=== PATIENT | male | born 1965 | race American Indian/Alaskan Native ===

== ENCOUNTER 2018-05-11 11:42 | Day surgery (SDC) | payer MEDICARE, OTHER ==
[~2018-05-11 11:42] MED LIST: Lactated Ringers 1,000 ML IV SCH; Lidocaine 2% 5 ML SDV ONE; Midazolam 1 MG/ML 2 ML SDV ONE; Propofol 200 MG/20 ML SDV ONE
--- NOTE | 2018-05-11 12:32 | PCM.PREANE ---
Preanesthetic Assessment - Anesthesia/Transfusion/Family Hx Anesthesia History: Prior Anesthesia Without Reaction Family History of Anesthesia Reaction: No Transfusion History: No Prior Transfusion(s) Intubation History: Unknown - Review of Systems General: No Symptoms Pulmonary: No Symptoms Cardiovascular: No Symptoms Neurological: No Symptoms Other: Reports: None - Physical Assessment NPO Status Date: 05/10/18 Height: 1.8 m Weight: 103.419 kg ASA Class: 2 Airway Class: Mallampati = 2 Dentition: Reports: Dentures (upper) ROM/Head Extension: Full Lungs: Clear to Auscultation, Normal Respiratory Effort Cardiovascular: Regular Rate, Regular Rhythm - Allergies Allergies/Adverse Reactions: Allergies Allergy/AdvReac Type Severity Reaction Status Date / Time No Known Allergies Allergy Verified 05/06/18 07:58 - Blood Blood Available: No - Anesthesia Plan Pre-Op Medication Ordered: None - Acknowledgements Anesthesia Type Planned: MAC Pt an Appropriate Candidate for the Planned Anesthesia: Yes Alternatives and Risks of Anesthesia Discussed w Pt/Guardian: Yes Pt/Guardian Understands and Agrees with Anesthesia Plan: Yes Additional Comments: PMH: HTN, smoker PLAN: MC/TIVA PreAnesthesia Questionnaire HEENT History: Reports: Other (See Below) Other HEENT History: upper denture, wears glasses Cardiovascular History: Reports: CAD, Hypertension, [place] Gastrointestinal History: Reports: GERD Other Gastrointestinal History: difficulty swallowing Genitourinary History: Reports: None Musculoskeletal History: Reports: Arthritis, Back Pain, Chronic, Fracture Neurological History: Reports: None Psychiatric History: Reports: None Endocrine/Metabolic History: Reports: Obesity/BMI 30+ Hematologic History: Reports: None Immunologic History: Reports: None Oncologic (Cancer) History: Reports: None - Infectious Disease History Infectious Disease History: Reports: Chicken Pox, Mumps - Past Surgical History Head Surgeries/Procedures: Reports: None GI Surgical History: Reports: Cholecystectomy Neurological Surgical History: Reports: Lumbar Spine Other Neurological Surgeries/Procedures: back surgery x3 Musculoskeletal Surgical History: Reports: ORIF, Shoulder Surgery, Other (See Below) Other Musculoskeletal Surgeries/Procedures:: hardware to both lower extremities , hx rt shoulder surgery - SUBSTANCE USE Smoking Status *Q: Former Smoker Tobacco Use Within Last Twelve Months: No Recreational Drug Use History: No - HOME MEDS Home Medications: Home Meds Lisinopril/Hydrochlorothiazide [Lisinopril-Hctz 20-12.5 mg Tab] 1 tab PO DAILY 10/19/18 [History] Metoprolol Succinate 25 mg PO DAILY 02/11/18 [History] traMADol HCl [Tramadol HCl] 1 - 2 tab PO Q8H PRN 03/08/18 [History] Acetaminophen [Tylenol Extra Strength] 1 - 2 tab PO ASDIRECTED PRN 05/06/18 [ History] Pantoprazole Sodium 40 mg PO BID 05/06/18 [History] - CURRENT (IN HOUSE) MEDS Current Meds: Current Medications Lactated Ringer's (Ringers, Lactated) 1,000 mls @ 125 mls/hr IV ASDIRECTED NAVEEN Discontinued Medications Lidocaine (Xylocaine-Mpf 2%) Confirm Administered Dose 5 ml .ROUTE .STK-MED ONE Stop: 05/11/18 10:29 Midazolam HCl (Versed 1 Mg/Ml) Confirm Administered Dose 2 mg .ROUTE .STK-MED ONE Stop: 05/11/18 08:55 Propofol (Diprivan 20 Ml) Confirm Administered Dose 200 mg .ROUTE .STK-MED ONE Stop: 05/11/18 08:55
[2018-05-11] MEDS ORDERED: Propofol 200 MG/20 ML SDV ONE (14:01)
[2018-05-11] MEDS ORDERED: Lactated Ringers 1,000 ML IV SCH (14:15)
--- NOTE | 2018-05-11 14:16 | PCM.OPNOTE ---
- General Post-Op/Procedure Note Date of Surgery/Procedure: 05/11/18 Operative Procedure(s): Esophagogastroduodenoscopy with gastric and esophageal biopsies Pre Op Diagnosis: Progressive solid food dysphagia. 40 pound weight loss. Post-Op Diagnosis: Moderate acute and chronic gastritis. Distal esophagitis. No obvious stricture. Anesthesia Technique: MAC (ASA II) Primary Surgeon: Saad Rosario Condition: Good Free Text/Narrative:: DICTATION [id number] CPT CODE [id number]
--- NOTE | 2018-05-11 14:46 | PCM.POSTAN ---
POST ANESTHESIA ASSESSMENT - MENTAL STATUS Mental Status: Alert, Oriented (alert and very talkative) - VITAL SIGNS Pulse Rate: 75 SaO2: 95 Resp Rate: 20 Blood Pressure: 108/70 - RESPIRATORY Respiratory Status: Respiratory Rate WNL, Airway Patent, O2 Saturation Stable - CARDIOVASCULAR CV Status: Pulse Rate WNL, Blood Pressure Stable - GASTROINTESTINAL GI Status: No Symptoms - PAIN Pain Score: 0 (no pain, no nausea.) - POST OP HYDRATION Hydration Status: Adequate & Stable - OBSERVATIONS Free Text/Narrative:: awake, alert, vitals stable. Very talkative in pacu. Good post op phase I recovery.
[2018-05-11 15:27] VITALS: BP 108/70
--- NOTE | 2018-05-11 15:27 | PCM48HPAN ---
Post Anesthesia Note - EVALUATION WITHIN 48HRS OF ANESTHETIC Vital Signs in Normal Range: Yes Patient Participated in Evaluation: Yes Respiratory Function Stable: Yes Airway Patent: Yes Cardiovascular Function Stable: Yes Hydration Status Stable: Yes Pain Control Satisfactory: Yes (no pain) Nausea and Vomiting Control Satisfactory: Yes (no pain) Mental Status Recovered: Yes (alert and oriented ) Pulse Rate: 75 Resp Rate: 16 Blood Pressure: 108/70
--- NOTE | 2018-05-11 15:38 | OR ---
SURGEON: Saad Rosario M.D. DATE OF PROCEDURE: 05/11/2018 OPERATIONS PERFORMED: Esophagogastroduodenoscopy with gastric and esophageal biopsies. ANESTHESIA: MAC. ASA CLASSIFICATION: II. PREOPERATIVE DIAGNOSIS: Dysphagia with weight loss and family history of esophageal carcinoma. POSTOPERATIVE DIAGNOSES: 1. Moderate acute and chronic gastritis. 2. Hiatal hernia with esophagitis. DESCRIPTION OF PROCEDURE: The patient was taken to the endoscopy room and positioned on the endoscopy table in the supine position. Time-out was called for appropriate identification of the patient and procedure. Monitored anesthesia care was provided. The bite block was placed between the patient's teeth. The gastroscope was inserted through the bite block and advanced without difficulty into the esophagus. This was advanced down through the distal esophagus. I did not meet any resistance to advancement of the scope. Esophagus does demonstrate a bit of a tortuosity. Nevertheless, the gastroscope was easily inserted into the stomach and duodenum. Duodenum shows no acute inflammatory changes or ulcerations. The stomach does show rather significant gastritis. Antral biopsies were obtained to look for the presence of Helicobacter pylori. The gastroscope was then retroflexed to visualize the proximal stomach. No acute lesions were noted proximally. Specifically, no tumors were seen. The gastroscope was then slowly withdrawn. The GE junction does demonstrate some [id number] inflammatory changes and separate biopsies of this area were obtained. I do agree with Radiology report regarding the bird's beak deformity. However, I cannot see any obstruction to the advancement of the scope and was able to traverse the lower third of the esophagus multiple times without difficulty. No significant bleeding was noted. The mid and proximal esophagus demonstrated good contractility. Vocal cords were briefly visualized as the scope was withdrawn and noted to move symmetrically. The gastroscope was then removed with the patient having tolerated the procedure well. He was taken to recovery room in stable condition. BRITNI / KUMAR /[id number]
== END 2018-05-11 15:30 | disposition home or self-care (01) ==
LOC: MW.SDS 11:42
PROVIDERS: ATTEND Surgery
DX: K20.9 Esophagitis, unspecified (principal); K29.50 Unspecified chronic gastritis without bleeding; K29.00 Acute gastritis without bleeding; K44.9 Diaphragmatic hernia without obstruction or gangrene; R63.4 Abnormal weight loss; I10 Essential (primary) hypertension; E66.9 Obesity, unspecified; Z68.31 Body mass index [BMI] 31.0-31.9, adult; Z87.891 Personal history of nicotine dependence; Z79.899 Other long term (current) drug therapy; Z80.0 Family history of malignant neoplasm of digestive organs
CPT/HCPCS: 43239; 88305; 88312; J2250; J2704; J7120

== ENCOUNTER 2018-07-21 10:19 | Emergency (ER) | payer MEDICARE, OTHER ==
[2018-07-21] MEDS ORDERED: cefTRIAXone 1 GM Vial IM ONE (10:29)
--- NOTE | 2018-07-21 10:43 | EDM.PDOC ---
ED HPI GENERAL MEDICAL PROBLEM - General Chief Complaint: Skin Complaint Stated Complaint: INFECTION ON ABDOMEN Time Seen by Provider: 07/21/18 10:22 Source of Information: Reports: Patient History Limitations: Reports: No Limitations - History of Present Illness INITIAL COMMENTS - FREE TEXT/NARRATIVE: HISTORY AND PHYSICAL: History of present illness: Patient is a 53-year-old male who presents to the emergency room today with concerns of a postoperative infection. He states he was seen in [facility] for an esophageal stricture and had abdominal surgery recently. As a result, he has 5 post surgical stab sites to the mid abdomen (appears to have been closed with dermabond). The incision to the mid abdomen above the umbilicus is dehisced with minimal purulent drainage noted within the wound. Patient states he noticed this yesterday and was seen yesterday at [facility]. He was started on Keflex, its prescribed to be taken 4 times daily. He has had 3 doses this far. He is concerned as the infection has not gone away and is concerned he may need additional treatment. Patient denies any fever, chills, headache, change in vision, syncope or near syncope. Denies any chest pain, shortness of breath or cough. Denies any abdominal pain, nausea, vomiting, diarrhea, constipation or dysuria. Has not noted any blood in urine or stool. Patient has been eating and drinking appropriately. Review of systems: As per history of present illness and below otherwise all systems reviewed and negative. Past medical history: As per history of present illness and as reviewed below otherwise noncontributory. Surgical history: As per history of present illness and as reviewed below otherwise noncontributory. Social history: See social history for further information Family history: As per history of present illness and as reviewed below otherwise noncontributory. Physical exam: General: Well-developed and well-nourished 53-year-old male. Alert and oriented. Nontoxic appearing and in no acute distress. HEENT: Atraumatic, normocephalic, pupils equal and reactive bilaterally, negative for conjunctival pallor or scleral icterus, mucous membranes moist, TMs normal bilaterally, throat clear, neck supple, nontender, trachea midline. No drooling or trismus noted. No meningeal signs. No hot potato voice noted. Lungs: Clear to auscultation, breath sounds equal bilaterally, chest nontender. Heart: S1S2, regular rate and rhythm without overt murmur Abdomen: Soft, nondistended, nontender. Negative for masses or hepatosplenomegaly. Negative for costovertebral tenderness. Pelvis: Stable nontender. Genitourinary: Deferred. Rectal: Deferred. Skin: 5 postoperative stab sites noted to the abdomen all approximately 2 cm in length, 4 well closed with dermabond (no errythema noted or any evidence of infection). The incision site to the mid abdomen above the umbilicus is dehisced and opened approximately 1 cm at the widest part. There is some mild purulent drainage within the wound. The incision site edges are free of erythema and does not appear overly concerning. Able to see internal stitching holding the incision site together. Otherwise skin is intact, warm, dry. No lesions or rashes noted. Extremities: Atraumatic, negative for cords or calf pain. Neurovascular unremarkable. Neuro: Awake, alert, oriented. Cranial nerves II through XII unremarkable. Cerebellum unremarkable. Motor and sensory unremarkable throughout. Exam nonfocal. Notes: The area was cleansed and a wet dressing was applied and covered. We'll have the patient return here in 24 hours for reevaluation. Supportive care measures were reviewed and discussed. Voices understanding and is agreeable to plan of care. Denies any further questions or concerns at this time. Diagnostics: Wound culture Therapeutics: Rocephin Prescription: Bactrim DS Impression: Wound dehiscence Postsurgical incision infection Plan: 1. Please keep the dressing that you have onto the abdomen until you are reevaluated tomorrow. 2. Keep taking the Keflex that you have been prescribed as directed. Bactrim DS has also been added to this regimen. Take both medications until gone. 3. He may continue to use your pain medications that you have at home. 4. Follow-up at [facility] as we discussed. Return to the ED as needed and as discussed. Definitive disposition and diagnosis as appropriate pending reevaluation and review of above. abdomen Pain Score (Numeric/FACES): 6 - Related Data Allergies Allergy/AdvReac Type Severity Reaction Status Date / Time No Known Allergies Allergy Verified 07/21/18 10:27 Home Meds: Home Meds Lisinopril/Hydrochlorothiazide [Lisinopril-Hctz 20-12.5 mg Tab] 1 tab PO DAILY 10/19/18 [History] Metoprolol Succinate 25 mg PO DAILY 02/11/18 [History] traMADol HCl [Tramadol HCl] 1 - 2 tab PO Q8H PRN 03/08/18 [History] Acetaminophen [Tylenol Extra Strength] 1 - 2 tab PO ASDIRECTED PRN 05/06/18 [ History] Pantoprazole Sodium 40 mg PO BID 05/06/18 [History] Cephalexin [Keflex] 500 mg PO Q8HR 07/21/18 [History] Past Medical History HEENT History: Reports: Other (See Below) Other HEENT History: upper denture, wears glasses Cardiovascular History: Reports: CAD, Hypertension, [place] Respiratory History: Reports: None Gastrointestinal History: Reports: GERD Other Gastrointestinal History: difficulty swallowing Genitourinary History: Reports: None Musculoskeletal History: Reports: Arthritis, Back Pain, Chronic, Fracture Neurological History: Reports: None Psychiatric History: Reports: None Endocrine/Metabolic History: Reports: Obesity/BMI 30+ Hematologic History: Reports: None Immunologic History: Reports: None Oncologic (Cancer) History: Reports: None Dermatologic History: Reports: None - Infectious Disease History Infectious Disease History: Reports: Chicken Pox, Mumps - Past Surgical History Head Surgeries/Procedures: Reports: None HEENT Surgical History: Reports: None Cardiovascular Surgical History: Reports: None Respiratory Surgical History: Reports: None GI Surgical History: Reports: Cholecystectomy, Other (See Below) Other GI Surgeries/Procedures: laproscopy hellermenomity Male Surgical History: Reports: None Endocrine Surgical History: Reports: None Neurological Surgical History: Reports: Lumbar Spine Other Neurological Surgeries/Procedures: back surgery x3 Musculoskeletal Surgical History: Reports: ORIF, Shoulder Surgery, Other (See Below) Other Musculoskeletal Surgeries/Procedures:: hardware to both lower extremities , hx rt shoulder surgery Oncologic Surgical History: Reports: None Dermatological Surgical History: Reports: None Social & Family History - Family History Family Medical History: Noncontributory - Tobacco Use Smoking Status *Q: Current Every Day Smoker Years of Tobacco use: 25 Packs/Tins Daily: 0.5 - Caffeine Use Caffeine Use: Reports: None - Recreational Drug Use Recreational Drug Use: No ED ROS GENERAL - Review of Systems Review Of Systems: ROS reveals no pertinent complaints other than HPI. ED EXAM, SKIN/RASH Exam: See Below (See dictation) Course - Vital Signs Last Recorded V/S: Last Vital Signs Temp 97.6 F 07/21/18 10:51 Pulse 68 07/21/18 10:51 Resp 20 07/21/18 10:51 BP 120/72 07/21/18 10:51 Pulse Ox 96 07/21/18 10:51 - Orders/Labs/Meds Orders: Active Orders 24 hr Category Date Time Status Communication Order [RC] STAT Care 07/21/18 10:31 Active CULTURE WOUND [RM] Stat Lab 07/21/18 10:25 Received Meds: Medications Discontinued Medications Generic Name Dose Route Start Last Admin Trade Name Sheryl PRN Reason Stop Dose Admin Ceftriaxone Sodium 1 gm 07/21/18 10:29 07/21/18 10:52 Rocephin IM 07/21/18 10:30 1 gm ONETIME ONE Administration Lidocaine HCl 5 ml 07/21/18 10:39 07/21/18 10:55 Xylocaine-Mpf 1% INJECT 07/21/18 10:40 5 ml ONETIME ONE Administration Departure - Departure Time of Disposition: 10:42 Disposition: Home, Self-Care 01 Clinical Impression: Surgical wound infection Wound dehiscence, surgical Qualifiers: Encounter type: initial encounter Qualified Code(s): T81.31XA - Disruption of external operation (surgical) wound, not elsewhere classified, initial encounter - Discharge Information Instructions: Wound Infection, [id number] Referrals: Bobby Ny [Primary Care Provider] - Forms: ED Department Discharge Additional Instructions: The following information is given to patients seen in the emergency department who are being discharged to home. This information is to outline your options for follow-up care. We provide all patients seen in our emergency department with a follow-up referral. The need for follow-up, as well as the timing and circumstances, are variable depending upon the specifics of your emergency department visit. If you don't have a primary care physician on staff, we will provide you with a referral. We always advise you to contact your personal physician following an emergency department visit to inform them of the circumstance of the visit and for follow-up with them and/or the need for any referrals to a consulting specialist. The emergency department will also refer you to a specialist when appropriate. This referral assures that you have the opportunity for follow-up care with a specialist. All of these measure are taken in an effort to provide you with optimal care, which includes your follow-up. Under all circumstances we always encourage you to contact your private physician who remains a resource for coordinating your care. When calling for follow-up care, please make the office aware that this follow-up is from your recent emergency room visit. If for any reason you are refused follow-up, please contact the [facility] Emergency Department at and asked to speak to the emergency department charge nurse. [facility] [address] [place] [id number] [facility] [address] [place] [id number] 1. Please keep the dressing that you have onto the abdomen until you are reevaluated tomorrow. 2. Keep taking the Keflex that you have been prescribed as directed. Bactrim DS has also been added to this regimen. Take both medications until gone. 3. He may continue to use your pain medications that you have at home. 4. Follow-up at [facility] as we discussed. Return to the ED as needed and as discussed. - My Orders Last 24 Hours: My Active Orders 07/21/18 10:25 CULTURE WOUND [RM] Stat 07/21/18 10:31 Communication Order [RC] STAT - Assessment/Plan Last 24 Hours: My Active Orders 07/21/18 10:25 CULTURE WOUND [RM] Stat 07/21/18 10:31 Communication Order [RC] STAT
[2018-07-21 10:52] VITALS: BP 120/72
== END 2018-07-21 11:05 | disposition home or self-care (01) ==
LOC: MW.ED 10:19
DX: T81.31XA Disruption of external operation (surgical) wound, not elsewhere classified, initial encounter (principal); I10 Essential (primary) hypertension; I25.2 Old myocardial infarction; K21.9 Gastro-esophageal reflux disease without esophagitis; F17.210 Nicotine dependence, cigarettes, uncomplicated; I25.10 Atherosclerotic heart disease of native coronary artery without angina pectoris; Z79.899 Other long term (current) drug therapy; Z98.890 Other specified postprocedural states
CPT/HCPCS: 87070; 87077; 87186; 96372; 99283; J0696; J2001

== ENCOUNTER 2018-07-22 08:38 | Emergency (ER) | payer MEDICARE, OTHER ==
[2018-07-22 08:48] VITALS: BP 122/74
--- NOTE | 2018-07-22 08:49 | EDM.PDOC ---
ED HPI GENERAL MEDICAL PROBLEM - General Chief Complaint: Wound Recheck Stated Complaint: WOUND PACKING Time Seen by Provider: 07/22/18 08:39 - History of Present Illness INITIAL COMMENTS - FREE TEXT/NARRATIVE: HISTORY AND PHYSICAL: History of present illness: Patient's 53-year-old white male presents with a concern of wound check he was seen recently for a wound dehiscence of abdominal wound and was packed he is here today with no complaints other than wound check and packing removal Review of systems: As per history of present illness and below otherwise all systems reviewed and negative. Past medical history: As per history of present illness and as reviewed below otherwise noncontributory. Surgical history: As per history of present illness and as reviewed below otherwise noncontributory. Social history: No reported history of drug or alcohol abuse. Family history: As per history of present illness and as reviewed below otherwise noncontributory. Physical exam: HEENT: Atraumatic, normocephalic, pupils reactive, negative for conjunctival pallor or scleral icterus, mucous membranes moist, throat clear, neck supple, nontender, trachea midline. Lungs: Clear to auscultation, breath sounds equal bilaterally, chest nontender. Heart: S1S2, regular, negative for clicks, rubs, or JVD. Abdomen: Soft, nondistended, nontender. Negative for masses or hepatosplenomegaly. Negative for costovertebral tenderness. Patient's wound is healing well there is a dehiscence noted that approximately 3 cm in length pelvis abdominal wound. Pelvis: Stable nontender. Genitourinary: Deferred. Rectal: Deferred. Extremities: Atraumatic, negative for cords or calf pain. Neurovascular unremarkable. Neuro: Awake, alert, oriented. Cranial nerves II through XII unremarkable. Cerebellum unremarkable. Motor and sensory unremarkable throughout. Exam nonfocal. Diagnostics: None Therapeutics: Dressing was changed wound was repacked Impression: #1 wound check #2 wound dehiscence abdominal wall Definitive disposition and diagnosis as appropriate pending reevaluation and review of above. - Related Data Allergies Allergy/AdvReac Type Severity Reaction Status Date / Time No Known Allergies Allergy Verified 07/21/18 10:27 Home Meds: Home Meds Lisinopril/Hydrochlorothiazide [Lisinopril-Hctz 20-12.5 mg Tab] 1 tab PO DAILY 02/11/18 [History] Metoprolol Succinate 25 mg PO DAILY 02/11/18 [History] traMADol HCl [Tramadol HCl] 1 - 2 tab PO Q8H PRN 03/08/18 [History] Acetaminophen [Tylenol Extra Strength] 1 - 2 tab PO ASDIRECTED PRN 05/06/18 [ History] Pantoprazole Sodium 40 mg PO BID 05/06/18 [History] Cephalexin [Keflex] 500 mg PO Q8HR 07/21/18 [History] Past Medical History HEENT History: Reports: Other (See Below) Other HEENT History: upper denture, wears glasses Cardiovascular History: Reports: CAD, Hypertension, [place] Respiratory History: Reports: None Gastrointestinal History: Reports: GERD Other Gastrointestinal History: difficulty swallowing Genitourinary History: Reports: None Musculoskeletal History: Reports: Arthritis, Back Pain, Chronic, Fracture Neurological History: Reports: None Psychiatric History: Reports: None Endocrine/Metabolic History: Reports: Obesity/BMI 30+ Hematologic History: Reports: None Immunologic History: Reports: None Oncologic (Cancer) History: Reports: None Dermatologic History: Reports: None - Infectious Disease History Infectious Disease History: Reports: Chicken Pox, Mumps - Past Surgical History Head Surgeries/Procedures: Reports: None HEENT Surgical History: Reports: None Cardiovascular Surgical History: Reports: None Respiratory Surgical History: Reports: None GI Surgical History: Reports: Cholecystectomy, Other (See Below) Other GI Surgeries/Procedures: laproscopy hellermenomity Male Surgical History: Reports: None Endocrine Surgical History: Reports: None Neurological Surgical History: Reports: Lumbar Spine Other Neurological Surgeries/Procedures: back surgery x3 Musculoskeletal Surgical History: Reports: ORIF, Shoulder Surgery, Other (See Below) Other Musculoskeletal Surgeries/Procedures:: hardware to both lower extremities , hx rt shoulder surgery Oncologic Surgical History: Reports: None Dermatological Surgical History: Reports: None Social & Family History - Family History Family Medical History: Noncontributory - Caffeine Use Caffeine Use: Reports: None ED ROS GENERAL - Review of Systems Review Of Systems: ROS reveals no pertinent complaints other than HPI. ED EXAM, GENERAL - Physical Exam Exam: See Below (See dictation) Departure - Departure Time of Disposition: 08:48 Disposition: Home, Self-Care 01 Condition: Good Clinical Impression: Visit for wound check - Discharge Information Referrals: PCP,Unknown [Primary Care Provider] - Additional Instructions: The following information is given to patients seen in the emergency department who are being discharged to home. This information is to outline your options for follow-up care. We provide all patients seen in our emergency department with a follow-up referral. The need for follow-up, as well as the timing and circumstances, are variable depending upon the specifics of your emergency department visit. If you don't have a primary care physician on staff, we will provide you with a referral. We always advise you to contact your personal physician following an emergency department visit to inform them of the circumstance of the visit and for follow-up with them and/or the need for any referrals to a consulting specialist. The emergency department will also refer you to a specialist when appropriate. This referral assures that you have the opportunity for followup care with a specialist. All of these measure are taken in an effort to provide you with optimal care, which includes your followup. Under all circumstances we always encourage you to contact your private physician who remains a resource for coordinating your care. When calling for followup care, please make the office aware that this follow-up is from your recent emergency room visit. If for any reason you are refused follow-up, please contact the [facility] emergency department at and asked to speak to the emergency department charge nurse. Continue antibiotics as prescribed dressing change twice a day as discussed keep scheduled appointment with private medical doctor return as needed as discussed
== END 2018-07-22 09:05 | disposition home or self-care (01) ==
LOC: MW.ED 08:38
DX: T81.31XD Disruption of external operation (surgical) wound, not elsewhere classified, subsequent encounter (principal); I25.10 Atherosclerotic heart disease of native coronary artery without angina pectoris; I10 Essential (primary) hypertension; I25.2 Old myocardial infarction; F17.210 Nicotine dependence, cigarettes, uncomplicated; K21.9 Gastro-esophageal reflux disease without esophagitis; Z79.899 Other long term (current) drug therapy
CPT/HCPCS: 99283

== ENCOUNTER 2018-07-30 22:15 | Observation (INO) | payer MEDICARE, OTHER ==
[2018-07-30] MEDS ORDERED: Morphine 2 MG/ML Syringe IVPUSH ONE (22:51)
[2018-07-30] MEDS ORDERED: Sodium Chloride 0.9% 1,000 ML IV ONE (22:51)
[2018-07-30] MEDS ORDERED: Sodium Chloride 0.9% 2.5 ML Syringe FLUSH PRN (22:51)
[2018-07-30] MEDS ORDERED: Sodium Chloride 0.9% 10 ML Syringe FLUSH PRN (22:51)
[2018-07-30] MEDS ORDERED: Ketorolac 30 MG/ML SDV IVPUSH ONE (22:55)
--- NOTE | 2018-07-30 22:55 | EDM.PDOC ---
ED HPI GENERAL MEDICAL PROBLEM - General Chief Complaint: Abdominal Pain Stated Complaint: PT HAS STOMACH PAIN Time Seen by Provider: 07/30/18 22:46 - History of Present Illness INITIAL COMMENTS - FREE TEXT/NARRATIVE: HISTORY AND PHYSICAL: History of present illness: The patient is a 33-year-old male who presents with left-sided, left mid, abdominal pain that has been ongoing for 3 days. He says he was in bed and he rolled over and he felt the pain start but it was not sudden and it has been gradually increasing and not improving. The patient underwent surgery for achalasia 17 days ago at [facility] and is scheduled to follow-up the beginning of August. He says he's been doing well since the surgery and is not taking any pain medication. He says he has not had a normal bowel movements but he is moving stool does not like his usual stools and he is not having any vomiting. He says he has had a low-grade temp yesterday of 99 but nothing higher and he has no cough chest pain or shortness of breath. He has no urinary complaints no flank pain and no right-sided abdominal pain. He does have a wound above his umbilicus from his surgery that he has been doing packing and says it is healing well and he is not concerned about that. Review of systems: As per history of present illness and below otherwise all systems reviewed and negative. Past medical history: As per history of present illness and as reviewed below otherwise noncontributory. Surgical history: As per history of present illness and as reviewed below otherwise noncontributory. Social history: No reported history of drug or alcohol abuse. Family history: As per history of present illness and as reviewed below otherwise noncontributory. Physical exam: General: Well-developed well-nourished man who moves easily in the ED without distress and vital signs are noted by me HEENT: Atraumatic, normocephalic,negative for conjunctival pallor or scleral icterus, mucous membranes moist, throat clear, neck supple, nontender, trachea midline. Lungs: Clear to auscultation, breath sounds equal bilaterally, chest nontender. No wheezing or stridor Heart: S1S2, regular, rate and rhythm no overt murmurs Abdomen: Soft, nondistended, there is some mild tympany on percussion in the left upper abdomen without rebound or guarding and there is tenderness with palpation of the left upper and left mid abdomen without rebound or guarding. The incisions look clean and dry with the exception of the supraumbilical incision which is open and packing is in place but the base is clean and there is no fibrinous material nor any surrounding erythema tenderness or drainage Negative for masses or hepatosplenomegaly. Negative for costovertebral tenderness. Bowel sounds are slightly hypoactive Pelvis: Stable nontender. Genitourinary: Deferred. Rectal: Deferred. Extremities: Atraumatic, negative for cords or calf pain. Neurovascular unremarkable. Neuro: Awake, alert, oriented. Cranial nerves II through XII unremarkable. Cerebellum unremarkable. Motor and sensory unremarkable throughout. Exam nonfocal. Diagnostics: CBC CMP amylase lipase UA CT scan of the abdomen and pelvis Therapeutics: IV fluids morphine Toradol Dilaudid Patient is aware of all testing results and says he is still having pain. We will hang maintenance IV fluids and give him some more pain management. I discussed this case with Dr. Rosario at 0040 a.m. I discussed the CAT scan with respect to his lipase values and he does not think that his surgery would have aggravated the pancreas or caused a bump in his numbers. He does not feel that this is surgical nor do I will call and admit the case to the hospitalist The patient insists that he does not drink alcohol and has not been taking any reticular meds that could've aggravated his pancreas. 0048: Case was discussed with Dr. Fortune who would like another fluid bolus and maintenance fluids and I will give the patient another dose of pain medication. He is agreeable to admission and the patient is also agreeable for IV fluids and bowel rest and admission Impression: Left abdominal pain/elevated lipase, pancreatitis Definitive disposition and diagnosis as appropriate pending reevaluation and review of above. left lower quadrant abdomen Pain Score (Numeric/FACES): 9 - Related Data Allergies Allergy/AdvReac Type Severity Reaction Status Date / Time No Known Allergies Allergy Verified 07/30/18 22:30 Home Meds: Home Meds Lisinopril/Hydrochlorothiazide [Lisinopril-Hctz 20-12.5 mg Tab] 1 tab PO DAILY 02/11/18 [History] Metoprolol Succinate 25 mg PO DAILY 02/11/18 [History] Pantoprazole Sodium 40 mg PO DAILY 05/06/18 [History] Past Medical History HEENT History: Reports: Other (See Below) Other HEENT History: upper denture, wears glasses Cardiovascular History: Reports: CAD, Hypertension, MO Respiratory History: Reports: None Gastrointestinal History: Reports: GERD Other Gastrointestinal History: difficulty swallowing Genitourinary History: Reports: None Musculoskeletal History: Reports: Arthritis, Back Pain, Chronic, Fracture Neurological History: Reports: None Psychiatric History: Reports: None Endocrine/Metabolic History: Reports: Obesity/BMI 30+ Hematologic History: Reports: None Immunologic History: Reports: None Oncologic (Cancer) History: Reports: None Dermatologic History: Reports: None - Infectious Disease History Infectious Disease History: Reports: Chicken Pox, Mumps - Past Surgical History Head Surgeries/Procedures: Reports: None HEENT Surgical History: Reports: Other (See Below) Other HEENT Surgeries/Procedures: acalasia Cardiovascular Surgical History: Reports: None Respiratory Surgical History: Reports: None GI Surgical History: Reports: Cholecystectomy, Other (See Below) Other GI Surgeries/Procedures: laproscopy hellermenomity Male Surgical History: Reports: None Endocrine Surgical History: Reports: None Neurological Surgical History: Reports: Lumbar Spine Other Neurological Surgeries/Procedures: back surgery x3 Musculoskeletal Surgical History: Reports: ORIF, Shoulder Surgery, Other (See Below) Other Musculoskeletal Surgeries/Procedures:: hardware to both lower extremities , hx rt shoulder surgery Oncologic Surgical History: Reports: None Dermatological Surgical History: Reports: None Social & Family History - Family History Family Medical History: Noncontributory - Tobacco Use Smoking Status *Q: Current Every Day Smoker Years of Tobacco use: 22 Packs/Tins Daily: 1 - Caffeine Use Caffeine Use: Reports: None - Recreational Drug Use Recreational Drug Use: Yes Drug Use in Last 12 Months: Yes Recreational Drug Type: Reports: Marijuana/Hashish ED ROS GENERAL - Review of Systems Review Of Systems: ROS reveals no pertinent complaints other than HPI. ED EXAM, GENERAL - Physical Exam Exam: See Below (See dictation) Course - Vital Signs Last Recorded V/S: Last Vital Signs Temp 36.2 C 07/30/18 22:22 Pulse 80 07/30/18 22:22 Resp 18 07/30/18 22:22 BP 110/69 07/30/18 22:22 Pulse Ox 96 07/30/18 22:22 - Orders/Labs/Meds Orders: Active Orders 24 hr Category Date Time Status Patient Status [ADT] Stat ADT 07/31/18 00:49 Ordered HYDROmorphone [Dilaudid] Med 07/31/18 00:49 Once 1 mg IVPUSH ONETIME ONE Sodium Chloride 0.9% @ 125 MLS/HR (1,000ml) Med 07/31/18 01:00 Ordered Sodium Chloride 0.9% [Normal Saline] 1,000 ml IV ASDIRECTED Sodium Chloride 0.9% [Normal Saline] 1,000 ml Med 07/31/18 00:48 Ordered IV STAT Sodium Chloride 0.9% [Saline Flush] Med 07/30/18 22:51 Active 10 ml FLUSH ASDIRECTED PRN Sodium Chloride 0.9% [Saline Flush] Med 07/30/18 22:51 Active 2.5 ml FLUSH ASDIRECTED PRN Saline Lock Insert [OM.PC] Stat Oth 07/30/18 22:51 Ordered Medication Orders Sodium Chloride (Normal Saline) 1,000 mls @ 999 mls/hr IV STAT ONE Stop: 07/31/18 01:48 Sodium Chloride (Saline Flush) 10 ml FLUSH ASDIRECTED PRN PRN Reason: Keep Vein Open Sodium Chloride (Saline Flush) 2.5 ml FLUSH ASDIRECTED PRN PRN Reason: Keep Vein Open Labs: Laboratory Tests 07/30/18 07/30/18 07/30/18 Range/Units 22:45 22:45 22:45 WBC 10.04 (4.0-11.0) K/uL RBC 5.03 (4.50-5.90) M/uL Hgb 14.7 (13.0-17.0) g/dL Hct 42.9 (38.0-50.0) % MCV 85.3 (80.0-98.0) fL MCH 29.2 (27.0-32.0) pg MCHC 34.3 (31.0-37.0) g/dL RDW Std Deviation 42.5 (28.0-62.0) fl RDW Coeff of Elisa 14 (11.0-15.0) % Plt Count 310 (150-400) K/uL MPV 9.20 (7.40-12.00) fL Neut % (Auto) 48.7 (48.0-80.0) % Lymph % (Auto) 40.5 H (16.0-40.0) % Mora % (Auto) 7.0 (0.0-15.0) % Eos % (Auto) 3.0 (0.0-7.0) % Baso % (Auto) 0.8 (0.0-1.5) % Neut # (Auto) 4.9 (1.4-5.7) K/uL Lymph # (Auto) 4.1 H (0.6-2.4) K/uL Mora # (Auto) 0.7 (0.0-0.8) K/uL Eos # (Auto) 0.3 (0.0-0.7) K/uL Baso # (Auto) 0.1 (0.0-0.1) K/uL Nucleated RBC % 0.0 /100WBC Nucleated RBCs # 0 K/uL Sodium 139 (136-148) mmol/L Potassium 4.3 (3.5-5.1) mmol/L Chloride 104 (98-107) mmol/L Carbon Dioxide 24.3 (21.0-32.0) mmol/L BUN 21 H (7.0-18.0) mg/dL Creatinine 1.2 (0.8-1.3) mg/dL Est Cr Clr Drug Dosing 76.34 mL/min Estimated GFR (MDRD) > 60.0 ml/min Glucose 85 (74-106) mg/dL Calcium 8.8 (8.5-10.1) mg/dL Total Bilirubin 0.4 (0.2-1.0) mg/dL AST 17 (15-37) IU/L ALT 32 (14-63) IU/L Alkaline Phosphatase 84 (46-116) U/L Total Protein 7.6 (6.4-8.2) g/dL Albumin 4.0 (3.4-5.0) g/dL Globulin 3.6 (2.6-4.0) g/dL Albumin/Globulin Ratio 1.1 (0.9-1.6) Amylase 255 H (25-115) U/L Lipase 2278 H (73-393) U/L Urine Color DARK YELLOW Urine Appearance SLT CLOUDY Urine pH 5.5 (5.0-8.0) Ur Specific [place] 1.025 (1.001-1.035) Urine Protein NEGATIVE (NEGATIVE) mg/dL Urine Glucose (UA) NEGATIVE (NEGATIVE) mg/dL Urine Ketones NEGATIVE (NEGATIVE) mg/dL Urine Occult Blood NEGATIVE (NEGATIVE) Urine Nitrite NEGATIVE (NEGATIVE) Urine Bilirubin NEGATIVE (NEGATIVE) Urine Urobilinogen 0.2 (<2.0) EU/dL Ur Leukocyte Esterase NEGATIVE (NEGATIVE) Meds: Medications Generic Name Dose Route Start Last Admin Trade Name Tipq PRN Reason Stop Dose Admin Sodium Chloride 1,000 mls @ 999 mls/hr 07/31/18 00:48 Normal Saline IV 07/31/18 01:48 STAT ONE Sodium Chloride 10 ml 07/30/18 22:51 Saline Flush FLUSH ASDIRECTED PRN Keep Vein Open Sodium Chloride 2.5 ml 07/30/18 22:51 Saline Flush FLUSH ASDIRECTED PRN Keep Vein Open Discontinued Medications Generic Name Dose Route Start Last Admin Trade Name Tipq PRN Reason Stop Dose Admin Sodium Chloride 1,000 mls @ 999 mls/hr 07/30/18 22:51 07/30/18 23:00 Normal Saline IV 07/30/18 23:51 999 mls/hr STAT ONE Administration Iopamidol 100 ml 07/30/18 23:55 07/31/18 00:04 [id number] (76%) IVPUSH 07/30/18 23:56 100 ml ONETIME ONE Administration Ketorolac Tromethamine 30 mg 07/30/18 22:55 07/30/18 23:19 Toradol IVPUSH 07/30/18 22:56 30 mg ONETIME ONE Administration Morphine Sulfate 4 mg 07/30/18 22:51 07/30/18 23:00 Morphine IVPUSH 07/30/18 22:52 4 mg ONETIME ONE Administration Departure - Departure Time of Disposition: 00:51 Disposition: Refer to Observation Condition: Good Clinical Impression: Abdominal pain Qualifiers: Abdominal location: unspecified location Qualified Code(s): R10.9 - Unspecified abdominal pain - Discharge Information Referrals: PCP,None [Primary Care Provider] - Forms: ED Department Discharge - My Orders Last 24 Hours: My Active Orders 07/30/18 22:51 Sodium Chloride 0.9% [Saline Flush] 10 ml FLUSH ASDIRECTED PRN Sodium Chloride 0.9% [Saline Flush] 2.5 ml FLUSH ASDIRECTED PRN Saline Lock Insert [OM.PC] Stat 07/31/18 00:48 Sodium Chloride 0.9% [Normal Saline] 1,000 ml IV STAT 07/31/18 00:49 Patient Status [ADT] Stat HYDROmorphone [Dilaudid] 1 mg IVPUSH ONETIME ONE 07/31/18 01:00 Sodium Chloride 0.9% @ 125 MLS/HR (1,000ml) Sodium Chloride 0.9% [Normal Saline ] 1,000 ml IV ASDIRECTED - Assessment/Plan Last 24 Hours: My Active Orders 07/30/18 22:51 Sodium Chloride 0.9% [Saline Flush] 10 ml FLUSH ASDIRECTED PRN Sodium Chloride 0.9% [Saline Flush] 2.5 ml FLUSH ASDIRECTED PRN Saline Lock Insert [OM.PC] Stat 07/31/18 00:48 Sodium Chloride 0.9% [Normal Saline] 1,000 ml IV STAT 07/31/18 00:49 Patient Status [ADT] Stat HYDROmorphone [Dilaudid] 1 mg IVPUSH ONETIME ONE 07/31/18 01:00 Sodium Chloride 0.9% @ 125 MLS/HR (1,000ml) Sodium Chloride 0.9% [Normal Saline ] 1,000 ml IV ASDIRECTED
[2018-07-30 23:15] LABS: CHLORIDE,CL 104 mmol/L (98-107); SODIUM,NA 139 mmol/L (136-148)
[2018-07-30] MEDS ORDERED: Iopamidol 755 Mg/ML 100 ML Bottle IVPUSH ONE (23:55)
--- NOTE | 2018-07-31 00:31 | CT ---
INDICATION: Postop pain. Status post gastric cardia sphincter dilatation TECHNIQUE: CT abdomen and pelvis acquired with IV contrast. 100 cc Isovue 370 COMPARISON: 03/08/2018 FINDINGS: Lower chest: Thickening of the lower esophagus, GE junction and gastric cardia. No evidence for perforation. 5 millimeter benign calcified granuloma right lower lobe. Liver: Stable up attic cyst. Spleen: Benign splenic calcifications. 2.1 centimeter medial spur splenic cyst. Pancreas: Unremarkable. Gallbladder and bile ducts: Evidence of prior cholecystectomy with dilatation of the intrahepatic biliary ducts most likely related to reservoir effect. Kidneys: Unremarkable. Adrenal glands: Unremarkable. GI tract: Unremarkable. Appendix is normal. Vascular structures: Unremarkable. Lymph nodes: Unremarkable. Miscellaneous: Bilateral fat containing inguinal hernias. No free air or significant free fluid. Pelvic Organs: Unremarkable. Bones: Unremarkable for age. IMPRESSION: No definitive findings to explain the patient`s postop pain. Thickening of the distal esophagus, GE junction and gastric cardia. No evidence for perforation or fluid collections adjacent to the GE junction or gastric cardia. Stable hepatic cyst. 2.1 centimeter medial splenic cyst. Cholecystectomy. Dilatation of the intra and extrahepatic biliary ducts most likely related to reservoir effect. Dictated by Andrew Monteiro MD @ 07/31/2018 12:29:10 AM Please note that all CT scans at this facility use dose modulation, iterative reconstruction, and/or weight-based dosing when appropriate to reduce radiation dose to as low as reasonably achievable. Dictated by: Andrew Monteiro MD @ 07/31/2018 00:29:15 (Electronically Signed)
[2018-07-31] MEDS ORDERED: Sodium Chloride 0.9% 1,000 ML IV ONE (00:48)
[2018-07-31] MEDS ORDERED: HYDROmorphone 1 MG/ML Syringe IVPUSH ONE (00:49)
[2018-07-31] MEDS ORDERED: Sodium Chloride 0.9% 1,000 ML IV SCH (01:00)
[2018-07-31] MEDS ORDERED: Ondansetron 4 MG/2 ML SDV IVPUSH PRN (02:18)
[2018-07-31] MEDS: Morphine 2 MG/ML Syringe IVPUSH PRN ×7 (02:53→23:36)
[2018-07-31] MEDS: Pantoprazole 40 MG in Sodium Chloride 0.9% 10 ML IVPUSH SCH ×2 (02:59→09:45)
[2018-07-31] MEDS: Sodium Chloride 0.9% 1,000 ML IV SCH ×4 (03:01→19:16)
--- NOTE | 2018-07-31 18:49 | PCM.HP ---
H&P History of Present Illness - General Date of Service: 07/31/18 Admit Problem/Dx: Admission Diagnosis/Problem Admission Diagnosis/Problem Abdominal pain - History of Present Illness Initial Comments - Free Text/Narative: 53 yo male with pmh of achalasia surgery 18 days ago at [place]. He presents to the ED with complaint of abdominal pain for past five days. He reports band of pain across his abdomen. He denies any blood in his stool, nausea or vomiting. His laprascopic scars are healing well. He did not have much difficulty after the surgery and has been eating well. He note that [facility] informed him that he had a pancreatic mass seen on EGD and he was instructed to inform his primary care doctor regarding this finding. Patient denies a history of alcohol use. He has had a cholecystectomy. CT scan performed in ED showed thickening of distal esophagous. There was dilation of the bile ducts but this could be due to cholecystectomy. His lipase was noted to be 2,278. left lower quadrant abdomen Pain Score (Numeric/FACES): 8 - Related Data Allergies/Adverse Reactions: Allergies Allergy/AdvReac Type Severity Reaction Status Date / Time No Known Allergies Allergy Verified 07/30/18 22:30 Home Medications: Home Meds Lisinopril/Hydrochlorothiazide [Lisinopril-Hctz 20-12.5 mg Tab] 1 tab PO DAILY 02/11/18 [History] Metoprolol Succinate 25 mg PO DAILY 02/11/18 [History] Pantoprazole Sodium 40 mg PO DAILY 05/06/18 [History] Past Medical History HEENT History: Reports: Other (See Below) Other HEENT History: upper denture, wears glasses Cardiovascular History: Reports: CAD, Hypertension, NE Respiratory History: Reports: None Gastrointestinal History: Reports: GERD Other Gastrointestinal History: difficulty swallowing Genitourinary History: Reports: None Musculoskeletal History: Reports: Arthritis, Back Pain, Chronic, Fracture Neurological History: Reports: None Psychiatric History: Reports: None Endocrine/Metabolic History: Reports: Obesity/BMI 30+ Hematologic History: Reports: None Immunologic History: Reports: None Oncologic (Cancer) History: Reports: None Dermatologic History: Reports: None - Infectious Disease History Infectious Disease History: Reports: Chicken Pox, Mumps - Past Surgical History Head Surgeries/Procedures: Reports: None HEENT Surgical History: Reports: Other (See Below) Other HEENT Surgeries/Procedures: acalasia Cardiovascular Surgical History: Reports: None Respiratory Surgical History: Reports: None GI Surgical History: Reports: Cholecystectomy, Other (See Below) Other GI Surgeries/Procedures: laproscopy hellermenomity Male Surgical History: Reports: None Endocrine Surgical History: Reports: None Neurological Surgical History: Reports: Lumbar Spine Other Neurological Surgeries/Procedures: back surgery x3 Musculoskeletal Surgical History: Reports: ORIF, Shoulder Surgery, Other (See Below) Other Musculoskeletal Surgeries/Procedures:: hardware to both lower extremities , hx rt shoulder surgery Oncologic Surgical History: Reports: None Dermatological Surgical History: Reports: None Social & Family History - Family History Family Medical History: Noncontributory - Tobacco Use Smoking Status *Q: Current Every Day Smoker Years of Tobacco use: 21 Packs/Tins Daily: 0.5 Second Hand Smoke Exposure: No - Caffeine Use Caffeine Use: Reports: Energy Drinks, Soda, Tea - Recreational Drug Use Recreational Drug Use: Yes Drug Use in Last 12 Months: Yes Recreational Drug Type: Reports: Marijuana/Hashish Recreational Drug Use Frequency: Rarely Recreational Drug Last Use: a week ago H&P Review of Systems - Review of Systems: Review Of Systems: ROS reveals no pertinent complaints other than HPI. Exam - Exam Exam: See Below - Vital Signs Vital Signs: Last Vital Signs Temp 36.1 C 07/31/18 16:00 Pulse 55 L 07/31/18 16:00 Resp 16 07/31/18 16:00 BP 127/77 07/31/18 16:00 Pulse Ox 97 07/31/18 16:00 Weight: 101.605 kg - Exam General: Alert, Oriented HEENT: Mucosa Moist & [place] Lungs: Clear to Auscultation, Normal Respiratory Effort Cardiovascular: Regular Rate, Regular Rhythm GI/Abdominal Exam: Normal Bowel Sounds, Soft, No Distention, Tender (mildly tender in all four quadrants) Extremities: Non-Tender, No Pedal Edema Skin: Warm, Dry, Intact - Patient Data Lab Results Last 24 hrs: Laboratory Results - last 24 hr 07/30/18 07/30/18 07/30/18 Range/Units 22:45 22:45 22:45 WBC 10.04 (4.0-11.0) K/uL RBC 5.03 (4.50-5.90) M/uL Hgb 14.7 (13.0-17.0) g/dL Hct 42.9 (38.0-50.0) % MCV 85.3 (80.0-98.0) fL MCH 29.2 (27.0-32.0) pg MCHC 34.3 (31.0-37.0) g/dL RDW Std Deviation 42.5 (28.0-62.0) fl RDW Coeff of Elisa 14 (11.0-15.0) % Plt Count 310 (150-400) K/uL MPV 9.20 (7.40-12.00) fL Neut % (Auto) 48.7 (48.0-80.0) % Lymph % (Auto) 40.5 H (16.0-40.0) % [place] % (Auto) 7.0 (0.0-15.0) % Eos % (Auto) 3.0 (0.0-7.0) % Baso % (Auto) 0.8 (0.0-1.5) % Neut # (Auto) 4.9 (1.4-5.7) K/uL Lymph # (Auto) 4.1 H (0.6-2.4) K/uL [place] # (Auto) 0.7 (0.0-0.8) K/uL Eos # (Auto) 0.3 (0.0-0.7) K/uL Baso # (Auto) 0.1 (0.0-0.1) K/uL Nucleated RBC % 0.0 /100WBC Nucleated RBCs # 0 K/uL Sodium 139 (136-148) mmol/L Potassium 4.3 (3.5-5.1) mmol/L Chloride 104 (98-107) mmol/L Carbon Dioxide 24.3 (21.0-32.0) mmol/L BUN 21 H (7.0-18.0) mg/dL Creatinine 1.2 (0.8-1.3) mg/dL Est Cr Clr Drug Dosing 76.34 mL/min Estimated GFR (MDRD) > 60.0 ml/min Glucose 85 (74-106) mg/dL Calcium 8.8 (8.5-10.1) mg/dL Total Bilirubin 0.4 (0.2-1.0) mg/dL AST 17 (15-37) IU/L ALT 32 (14-63) IU/L Alkaline Phosphatase 84 (46-116) U/L Total Protein 7.6 (6.4-8.2) g/dL Albumin 4.0 (3.4-5.0) g/dL Globulin 3.6 (2.6-4.0) g/dL Albumin/Globulin Ratio 1.1 (0.9-1.6) Amylase 255 H (25-115) U/L Lipase 2278 H (73-393) U/L Urine Color DARK YELLOW Urine Appearance SLT CLOUDY Urine pH 5.5 (5.0-8.0) Ur Specific [place] 1.025 (1.001-1.035) Urine Protein NEGATIVE (NEGATIVE) mg/dL Urine Glucose (UA) NEGATIVE (NEGATIVE) mg/dL Urine Ketones NEGATIVE (NEGATIVE) mg/dL Urine Occult Blood NEGATIVE (NEGATIVE) Urine Nitrite NEGATIVE (NEGATIVE) Urine Bilirubin NEGATIVE (NEGATIVE) Urine Urobilinogen 0.2 (<2.0) EU/dL Ur Leukocyte Esterase NEGATIVE (NEGATIVE) Result Diagrams: 07/30/18 22:45 07/30/18 22:45 Problem List Initiated/Reviewed/Updated: Yes Orders Last 24hrs: Active Orders 24 hr Category Date Time Status Patient Status [ADT] Stat ADT 07/31/18 00:49 Active Antiembolic Devices [RC] PER UNIT ROUTINE Care 07/31/18 18:42 Ordered Oxygen Therapy [RC] PRN Care 07/31/18 18:41 Ordered Up With Assistance [RC] ASDIRECTED Care 07/31/18 18:41 Ordered Up ad Serena [RC] ASDIRECTED Care 07/31/18 02:18 Active VTE/DVT Education [RC] PER UNIT ROUTINE Care 07/31/18 18:41 Ordered Vital Signs [RC] Q4H Care 07/31/18 18:41 Ordered Nothing per Oral Now Diet [DIET] Diet 07/31/18 Breakfast Active CBC WITH AUTO DIFF [HEME] AM Lab 08/01/18 05:11 Ordered CBC WITH AUTO DIFF [HEME] AM Lab 08/02/18 05:11 Ordered COMPREHENSIVE METABOLIC PN,CMP [CHEM] AM Lab 08/01/18 05:11 Ordered COMPREHENSIVE METABOLIC PN,CMP [CHEM] AM Lab 08/02/18 05:11 Ordered Morphine Med 07/31/18 02:18 Active 2 mg IVPUSH Q2H PRN Ondansetron [Zofran] Med 07/31/18 02:18 Active 4 mg IVPUSH Q4H PRN Pantoprazole [ProTONIX IV] 40 mg Med 07/31/18 02:30 Active Sodium Chloride 0.9% [Normal Saline] 10 ml IVPUSH DAILY Sodium Chloride 0.9% [Normal Saline] 1,000 ml Med 07/31/18 02:30 Active IV ASDIRECTED Sodium Chloride 0.9% [Saline Flush] Med 07/30/18 22:51 Active 10 ml FLUSH ASDIRECTED PRN Sodium Chloride 0.9% [Saline Flush] Med 07/30/18 22:51 Active 2.5 ml FLUSH ASDIRECTED PRN Saline Lock Insert [OM.PC] Stat Ot 07/30/18 22:51 Ordered Sequential Compression Device [OM.PC] Per Unit Routine Ot 07/31/18 18:42 Ordered Resuscitation Status Routine Resus Stat 07/31/18 18:41 Ordered Medication Orders Pantoprazole Sodium 40 mg/ (Sodium Chloride) 10 mls @ 300 mls/hr IVPUSH DAILY [facility] Last Admin: 07/31/18 09:45 Dose: 300 mls/hr Infusion: 07/31/18 03:01 Dose: 300 mls/hr Admin: 07/31/18 02:59 Dose: 300 mls/hr Sodium Chloride (Normal Saline) 1,000 mls @ 200 mls/hr IV ASDIRECTED NAVEEN Last Admin: 07/31/18 13:59 Dose: 200 mls/hr Infusion: 07/31/18 13:21 Dose: 200 mls/hr Admin: 07/31/18 08:21 Dose: 200 mls/hr Infusion: 07/31/18 08:01 Dose: 200 mls/hr Admin: 07/31/18 03:01 Dose: 200 mls/hr Morphine Sulfate (Morphine) 2 mg IVPUSH Q2H PRN PRN Reason: Pain Last Admin: 07/31/18 14:34 Dose: 2 mg Admin: 07/31/18 11:42 Dose: 2 mg Admin: 07/31/18 08:26 Dose: 2 mg Admin: 07/31/18 05:28 Dose: 2 mg Admin: 07/31/18 02:53 Dose: 2 mg Ondansetron HCl (Zofran) 4 mg IVPUSH Q4H PRN PRN Reason: Nausea Sodium Chloride (Saline Flush) 10 ml FLUSH ASDIRECTED PRN PRN Reason: Keep Vein Open Sodium Chloride (Saline Flush) 2.5 ml FLUSH ASDIRECTED PRN PRN Reason: Keep Vein Open Assessment/Plan Comment:: 53 yo male admitted for acute pancreatitis. We will treat with bowel rest and IV fluids. We will try to get records from [place] regarding his surgery and findings of his pancreatic lesion. We will get RUQ ultrasound.
[2018-07-31] MEDS ORDERED: Lisinopril/Hydrochlorothiazide 10-12.5 MG Tab PO SCH (20:00)
[2018-07-31] MEDS: Lisinopril 10 MG Tab PO SCH (21:09)
[2018-07-31] MEDS: Lisinopril/Hydrochlorothiazide 10-12.5 MG Tab PO SCH (21:09)
[2018-07-31] MEDS: Nicotine 14 MG/24 Hr Patch TRDERM SCH (21:09)
[2018-08-01] MEDS: Sodium Chloride 0.9% 1,000 ML IV SCH ×4 (00:43→15:44)
[2018-08-01] MEDS: Morphine 2 MG/ML Syringe IVPUSH PRN ×2 (03:52→06:53)
[2018-08-01 06:28] LABS: CHLORIDE,CL 109 mmol/L (98-107); SODIUM,NA 142 mmol/L (136-148)
--- NOTE | 2018-08-01 07:45 | PCM.PN ---
- General Info Date of Service: 08/01/18 - Review of Systems Systems Review Comment:: abdominal pain is improving, patient wants to try food - Patient Data Vitals - Most Recent: Last Vital Signs Temp 36.6 C 08/01/18 04:00 Pulse 64 08/01/18 04:00 Resp 16 08/01/18 04:00 BP 114/71 08/01/18 04:00 Pulse Ox 95 08/01/18 04:00 Weight - Most Recent: 101.605 kg I&O - Last 24 Hours: Intake & Output 07/31/18 08/01/18 08/01/18 22:59 06:59 14:59 Intake Total 2227 2250 Output Total 1125 3515 Balance 1102 -1105 Lab Results Last 24 Hours: Laboratory Results - last 24 hr 07/31/18 08/01/18 08/01/18 Range/Units 20:00 05:31 05:31 WBC 5.90 (4.0-11.0) K/uL RBC 4.51 (4.50-5.90) M/uL Hgb 12.9 L (13.0-17.0) g/dL Hct 38.7 (38.0-50.0) % MCV 85.8 (80.0-98.0) fL MCH 28.6 (27.0-32.0) pg MCHC 33.3 (31.0-37.0) g/dL RDW Std Deviation 42.5 (28.0-62.0) fl RDW Coeff of Elisa 14 (11.0-15.0) % Plt Count 252 (150-400) K/uL MPV 9.50 (7.40-12.00) fL Neut % (Auto) 58.2 (48.0-80.0) % Lymph % (Auto) 31.5 (16.0-40.0) % [place] % (Auto) 6.1 (0.0-15.0) % Eos % (Auto) 3.4 (0.0-7.0) % Baso % (Auto) 0.8 (0.0-1.5) % Neut # (Auto) 3.4 (1.4-5.7) K/uL Lymph # (Auto) 1.9 (0.6-2.4) K/uL [place] # (Auto) 0.4 (0.0-0.8) K/uL Eos # (Auto) 0.2 (0.0-0.7) K/uL Baso # (Auto) 0.1 (0.0-0.1) K/uL Nucleated RBC % 0.0 /100WBC Nucleated RBCs # 0 K/uL Sodium 142 (136-148) mmol/L Potassium 4.1 (3.5-5.1) mmol/L Chloride 109 H (98-107) mmol/L Carbon Dioxide 22.8 (21.0-32.0) mmol/L BUN 10 (7.0-18.0) mg/dL Creatinine 0.8 (0.8-1.3) mg/dL Est Cr Clr Drug Dosing 114.51 mL/min Estimated GFR (MDRD) > 60.0 ml/min Glucose 76 (74-106) mg/dL Calcium 8.2 L (8.5-10.1) mg/dL Total Bilirubin 1.0 (0.2-1.0) mg/dL AST 34 (15-37) IU/L ALT 62 (14-63) IU/L Alkaline Phosphatase 64 (46-116) U/L Total Protein 6.2 L (6.4-8.2) g/dL Albumin 3.2 L (3.4-5.0) g/dL Globulin 3.0 (2.6-4.0) g/dL Albumin/Globulin Ratio 1.1 (0.9-1.6) Triglycerides 240 H (0-200) mg/dL Cholesterol 133 (50-200) mg/dL LDL Cholesterol, Calc 60 (60-180) mg/dL VLDL Cholesterol 48 (5-55) mg/dL HDL Cholesterol 25 L (40-60) mg/dL Cholesterol/HDL Ratio 5.3 (3.3-6.0) Med Orders - Current: Current Medications Lisinopril/HCTZ (Lisinopril-Hctz 10-12.5 Mg) 1 tab PO BEDTIME [facility] Last Admin: 07/31/18 21:09 Dose: 1 tab Pantoprazole Sodium 40 mg/ (Sodium Chloride) 10 mls @ 300 mls/hr IVPUSH DAILY NAVEEN Last Admin: 07/31/18 09:45 Dose: 300 mls/hr Sodium Chloride (Normal Saline) 1,000 mls @ 200 mls/hr IV ASDIRECTED [facility] Last Admin: 08/01/18 05:39 Dose: 200 mls/hr Pantoprazole Sodium 40 mg/ (Sodium Chloride) 10 mls @ 300 mls/hr IVPUSH Q24H [facility] Lisinopril (Prinivil) 10 mg PO BEDTIME [facility] Last Admin: 07/31/18 21:09 Dose: 10 mg Metoprolol Succinate (Toprol Xl) 25 mg PO DAILY [facility] Nicotine (Habitrol) 14 mg TRDERM DAILY [facility] Last Admin: 07/31/18 21:09 Dose: Not Given Ondansetron HCl (Zofran) 4 mg IVPUSH Q4H PRN PRN Reason: Nausea Sodium Chloride (Saline Flush) 10 ml FLUSH ASDIRECTED PRN PRN Reason: Keep Vein Open Sodium Chloride (Saline Flush) 2.5 ml FLUSH ASDIRECTED PRN PRN Reason: Keep Vein Open Discontinued Medications Lisinopril/HCTZ (Lisinopril-Hctz 10-12.5 Mg) 1 tab PO DAILY [facility] Last Admin: 07/31/18 22:58 Dose: Not Given Hydromorphone HCl (Dilaudid) 1 mg IVPUSH ONETIME ONE Stop: 07/31/18 00:50 Last Admin: 07/31/18 00:56 Dose: 1 mg Sodium Chloride (Normal Saline) 1,000 mls @ 999 mls/hr IV STAT ONE Stop: 07/30/18 23:51 Last Admin: 07/30/18 23:00 Dose: 999 mls/hr Sodium Chloride (Normal Saline) 1,000 mls @ 999 mls/hr IV STAT ONE Stop: 07/31/18 01:48 Last Admin: 07/31/18 00:56 Dose: 999 mls/hr Sodium Chloride (Normal Saline) 1,000 mls @ 125 mls/hr IV ASDIRECTED [facility] Iopamidol (Isovue-370 (76%)) 100 ml IVPUSH ONETIME ONE Stop: 07/30/18 23:56 Last Admin: 07/31/18 00:04 Dose: 100 ml Ketorolac Tromethamine (Toradol) 30 mg IVPUSH ONETIME ONE Stop: 07/30/18 22:56 Last Admin: 07/30/18 23:19 Dose: 30 mg Morphine Sulfate (Morphine) 4 mg IVPUSH ONETIME ONE Stop: 07/30/18 22:52 Last Admin: 07/30/18 23:00 Dose: 4 mg Morphine Sulfate (Morphine) 2 mg IVPUSH Q2H PRN PRN Reason: Pain Last Admin: 08/01/18 06:53 Dose: 2 mg - Exam General: Alert, Oriented HEENT: Mucous Membr. Moist/[place] Neck: Supple Lungs: Clear to Auscultation, Normal Respiratory Effort Cardiovascular: Regular Rate, Regular Rhythm GI/Abdominal Exam: Normal Bowel Sounds, Soft, Non-Tender, No Distention, Other ( surgical wounds healing well) Skin: Warm, Dry, Intact - Problem List Review Problem List Initiated/Reviewed/Updated: Yes - My Orders Last 24 Hours: My Active Orders 07/31/18 18:41 Oxygen Therapy [RC] PRN Up With Assistance [RC] ASDIRECTED VTE/DVT Education [RC] PER UNIT ROUTINE Vital Signs [RC] Q4H Resuscitation Status Routine 07/31/18 18:42 Antiembolic Devices [RC] PER UNIT ROUTINE Sequential Compression Device [OM.PC] Per Unit Routine 07/31/18 18:46 Patient Old Record [Obtain Past Medical Record] [OM.PC] Routine 07/31/18 20:30 Nicotine [Habitrol] 14 mg TRDERM DAILY 07/31/18 21:00 Lisinopril [Prinivil] 10 mg PO BEDTIME Lisinopril/Hydrochlorothiazide [Lisinopril-HCTZ 10-12.5 MG] 1 tab PO BEDTIME 08/01/18 07:45 Pantoprazole [ProTONIX IV] 40 mg Sodium Chloride 0.9% [Normal Saline] 10 ml IVPUSH Q24H 08/01/18 09:00 Metoprolol Succinate [Toprol XL] 25 mg PO DAILY 08/01/18 Lunch Clear Liquid Diet [DIET] 08/02/18 05:11 CBC WITH AUTO DIFF [HEME] AM COMPREHENSIVE METABOLIC PN,CMP [CHEM] AM - Plan Plan:: 53 yo male admitted for acute pancreatitis. His abdominal pain is improving. Treating with IV fluids. Awaiting medical records from [place]. RU ultrasound pending. Will advance diet to clear liquids.
[2018-08-01] MEDS: Nicotine 14 MG/24 Hr Patch TRDERM SCH ×2 (09:21→16:58)
[2018-08-01] MEDS: Metoprolol Succinate 25 MG Tab.ER PO SCH (09:23)
[2018-08-01] MEDS: Pantoprazole 40 MG in Sodium Chloride 0.9% 10 ML IVPUSH SCH ×2 (09:31→10:41)
[2018-08-01] MEDS: oxyCODONE 5 MG Tab PO PRN ×4 (11:45→23:52)
[2018-08-01] MEDS: Lisinopril 10 MG Tab PO SCH (20:05)
[2018-08-01] MEDS: Lisinopril/Hydrochlorothiazide 10-12.5 MG Tab PO SCH (20:05)
[2018-08-02] MEDS: oxyCODONE 5 MG Tab PO PRN ×3 (04:01→13:18)
[2018-08-02] MEDS: Sodium Chloride 0.9% 1,000 ML IV SCH ×2 (04:05→09:13)
--- NOTE | 2018-08-02 06:12 | US ---
INDICATION: Left lower quadrant abdominal pain for the last 3 days; patient is postop for surgery on the esophagus. COMPARISON: CT abdomen and pelvis July 30, 2018 and 03/08/2018. TECHNIQUE: Focused ultrasound examination of the left lower quadrant of the abdomen. FINDINGS: No pathology identified involving the left lower quadrant of the abdomen. The left kidney is unremarkable . No evidence of hernia identified in the left lower quadrant of the abdomen. No pathology in the abdominal wall. IMPRESSION: Negative focused ultrasound examination of the left lower quadrant of the abdomen. Dictated by Haleigh Eric MD @ Aug 02 2018 6:09AM Signed by Dr. Haleigh Eric @ Aug 02 2018 6:12AM
[2018-08-02 06:17] LABS: CHLORIDE,CL 109 mmol/L (98-107); SODIUM,NA 141 mmol/L (136-148)
[2018-08-02] MEDS: Pantoprazole 40 MG in Sodium Chloride 0.9% 10 ML IVPUSH SCH (06:47)
[2018-08-02] MEDS: Metoprolol Succinate 25 MG Tab.ER PO SCH (09:13)
[2018-08-02] MEDS: Nicotine 14 MG/24 Hr Patch TRDERM SCH (09:16)
--- NOTE | 2018-08-02 09:26 | US ---
EXAMINATION: Right upper quadrant ultrasound HISTORY: Pancreatitis COMPARISON: CT dated 07/30/2018 TECHNIQUE: Grayscale and color Doppler imaging obtained. FINDINGS: The visualized pancreas appears normal. Status post cholecystectomy. Common bile duct is not definitively noted. Pancreatic duct measures 2-3 mm. The liver is normal in contour and echotexture without a focal hepatic mass. Right kidney measures at least 12.6 MS [id number] without evidence of hydronephrosis. IMPRESSION: 1. Grossly unremarkable right upper quadrant ultrasound.
--- NOTE | 2018-08-02 11:32 | PCM.DCSUM1 ---
<Neeta Uriostegui - Last Filed: 08/02/18 12:50> Discharge Summary - Hospital Course Brief History: 53 yo male with pmh of achalasia surgery 18 days ago at [facility]. He presents to the ED with complaint of abdominal pain for past five days. He reports band of pain across his abdomen. He denies any blood in his stool, nausea or vomiting. His laprascopic scars are healing well. He did not have much difficulty after the surgery and has been eating well. He note that [facility] informed him that he had a pancreatic mass seen on EGD and he was instructed to inform his primary care doctor regarding this finding. Patient denies a history of alcohol use. He has had a cholecystectomy. CT scan performed in ED showed thickening of distal esophagous. There was dilation of the bile ducts but this could be due to cholecystectomy. His lipase was noted to be 2,278. Diagnosis: Stroke: No - Discharge Data Discharge Date: 08/02/18 Discharge Disposition: Home, Self-Care 01 Condition: Good - Patient Instructions Diet: Full Liquid Diet (soft low fat, as perscribed by GI DR. Cyndi eagle.) Activity: As Tolerated Driving: Do Not Drive (no driving while taking narcotics) Notify Provider of: Fever, Increased Pain, Swelling and Redness, Drainage, Nausea and/or Vomiting - Discharge Plan *PRESCRIPTION DRUG MONITORING PROGRAM REVIEWED*: Not Applicable *COPY OF PRESCRIPTION DRUG MONITORING REPORT IN PATIENT ADILIA: Not Applicable Prescriptions/Med Rec: oxyCODONE 5 mg PO Q6H PRN #10 tablet PRN Reason: Pain Home Medications: Home Meds Lisinopril/Hydrochlorothiazide [Lisinopril-Hctz 20-12.5 mg Tab] 1 tab PO BEDTIME 02/11/18 [History] Metoprolol Succinate 25 mg PO DAILY 02/11/18 [History] Pantoprazole Sodium 40 mg PO DAILY 05/06/18 [History] oxyCODONE 5 mg PO Q6H PRN #10 tablet 08/02/18 [Rx] Oxygen Therapy Mode: Room Air Patient Handouts: Oxycodone tablets or capsules Referrals: Graeme Lopez MD [Physician] - 08/11/18 2:00 pm - Discharge Summary/Plan Comment DC Time >30 min.: No Discharge Summary/Plan Comment: Discharge Diagnoses: Pancreatitis Cueva was admitted secondary to new abdominal pain. He was treated with IVFs and bowel rest. CT was negative and RUQ was unremarkable. Lipase returned to normal today. Pain is better and he is eager to eat and go home. Pain he is having is over two lap sites on his L side. He is passing gas and having BMs. He reports the pain started after he broke his diet rules and ate a [place] omelet at [employer] two days in a row. He is supposed to stay on soft diet, like puddings and jello. Today he tolerated [place] diet and pain did not increase. He will be discharged home today. He was give Oxycodone 5 mg PO Q6 hrs PRN pain # 10 tabs no refills. He has follow up with [facility] beginning of August. I did review notes from [facility], there was no mention of pancreatic lesion as Hammad mentions and our CT here reports pancreas unremarkable. I told him to follow up with surgeon in [facility] regarding this. He is to return to ED or clinic if concerns should arise. - General Info Date of Service: 08/02/18 Admission Dx/Problem (Free Text: Admission Diagnosis/Problem Admission Diagnosis/Problem Abdominal pain Subjective Update: Doing well today, very eager to eat and go home. No chest pain or palpitations. Abdominal pain is when he twists or moves a certain way near left lap sites. Passing gas and having BMs. Functional Status: Reports: Pain Controlled, Tolerating Diet, Ambulating, Urinating - Review of Systems General: Reports: No Symptoms. Denies: Fever, Weakness, Fatigue HEENT: Reports: No Symptoms. Denies: Sore Throat, Visual Changes Pulmonary: Reports: No Symptoms. Denies: Shortness of Breath Cardiovascular: Reports: No Symptoms. Denies: Chest Pain Gastrointestinal: Reports: Abdominal Pain (near LLQ lap sites.). Denies: Diarrhea, Nausea, Vomiting Genitourinary: Reports: No Symptoms Musculoskeletal: Reports: No Symptoms Skin: Reports: No Symptoms Neurological: Reports: No Symptoms Psychiatric: Reports: No Symptoms - Patient Data Vitals - Most Recent: Last Vital Signs Temp 98.7 F 08/02/18 08:00 Pulse 66 08/02/18 09:13 Resp 18 08/02/18 08:00 BP 158/89 H 08/02/18 09:13 Pulse Ox 97 08/02/18 08:00 Weight - Most Recent: 101.605 kg I&O - Last 24 hours: Intake & Output 08/01/18 08/02/18 08/02/18 22:59 06:59 14:59 Intake Total 2534 2270 Output Total 1493 2770 Balance 1044 -500 Lab Results - Last 24 hrs: Laboratory Results - last 24 hr 08/02/18 08/02/18 Range/Units 05:25 05:25 WBC 5.69 (4.0-11.0) K/uL RBC 4.28 L (4.50-5.90) M/uL Hgb 12.3 L (13.0-17.0) g/dL Hct 36.4 L (38.0-50.0) % MCV 85.0 (80.0-98.0) fL MCH 28.7 (27.0-32.0) pg MCHC 33.8 (31.0-37.0) g/dL RDW Std Deviation 41.3 (28.0-62.0) fl RDW Coeff of Elisa 14 (11.0-15.0) % Plt Count 249 (150-400) K/uL MPV 9.40 (7.40-12.00) fL Neut % (Auto) 49.7 (48.0-80.0) % Lymph % (Auto) 37.3 (16.0-40.0) % [place] % (Auto) 7.9 (0.0-15.0) % Eos % (Auto) 4.4 (0.0-7.0) % Baso % (Auto) 0.7 (0.0-1.5) % Neut # (Auto) 2.8 (1.4-5.7) K/uL Lymph # (Auto) 2.1 (0.6-2.4) K/uL [place] # (Auto) 0.5 (0.0-0.8) K/uL Eos # (Auto) 0.3 (0.0-0.7) K/uL Baso # (Auto) 0.0 (0.0-0.1) K/uL Nucleated RBC % 0.0 /100WBC Nucleated RBCs # 0 K/uL Sodium 141 (136-148) mmol/L Potassium 3.9 (3.5-5.1) mmol/L Chloride 109 H (98-107) mmol/L Carbon Dioxide 23.6 (21.0-32.0) mmol/L BUN 8 (7.0-18.0) mg/dL Creatinine 0.8 (0.8-1.3) mg/dL Est Cr Clr Drug Dosing 114.51 mL/min Estimated GFR (MDRD) > 60.0 ml/min Glucose 77 (74-106) mg/dL Calcium 8.3 L (8.5-10.1) mg/dL Total Bilirubin 1.1 H (0.2-1.0) mg/dL AST 23 (15-37) IU/L ALT 45 (14-63) IU/L Alkaline Phosphatase 60 (46-116) U/L Total Protein 6.1 L (6.4-8.2) g/dL Albumin 3.3 L (3.4-5.0) g/dL Globulin 2.8 (2.6-4.0) g/dL Albumin/Globulin Ratio 1.2 (0.9-1.6) Lipase 114 (73-393) U/L Med Orders - Current: Current Medications Lisinopril/HCTZ (Lisinopril-Hctz 10-12.5 Mg) 1 tab PO BEDTIME [facility] Last Admin: 08/01/18 20:05 Dose: 1 tab Sodium Chloride (Normal Saline) 1,000 mls @ 200 mls/hr IV ASDIRECTED [facility] Last Admin: 08/02/18 09:13 Dose: 200 mls/hr Pantoprazole Sodium 40 mg/ (Sodium Chloride) 10 mls @ 300 mls/hr IVPUSH Q24H [facility] Last Admin: 08/02/18 06:47 Dose: 300 mls/hr Lisinopril (Prinivil) 10 mg PO BEDTIME [facility] Last Admin: 08/01/18 20:05 Dose: 10 mg Metoprolol Succinate (Toprol Xl) 25 mg PO DAILY [facility] Last Admin: 08/02/18 09:13 Dose: 25 mg Nicotine (Habitrol) 14 mg TRDERM DAILY@1700 [facility] Ondansetron HCl (Zofran) 4 mg IVPUSH Q4H PRN PRN Reason: Nausea Oxycodone HCl (Oxycodone) 5 mg PO Q4H PRN PRN Reason: Pain Last Admin: 08/02/18 09:11 Dose: 5 mg Sodium Chloride (Saline Flush) 10 ml FLUSH ASDIRECTED PRN PRN Reason: Keep Vein Open Sodium Chloride (Saline Flush) 2.5 ml FLUSH ASDIRECTED PRN PRN Reason: Keep Vein Open Discontinued Medications Lisinopril/HCTZ (Lisinopril-Hctz 10-12.5 Mg) 1 tab PO DAILY [facility] Last Admin: 07/31/18 22:58 Dose: Not Given Hydromorphone HCl (Dilaudid) 1 mg IVPUSH ONETIME ONE Stop: 07/31/18 00:50 Last Admin: 07/31/18 00:56 Dose: 1 mg Sodium Chloride (Normal Saline) 1,000 mls @ 999 mls/hr IV STAT ONE Stop: 07/30/18 23:51 Last Admin: 07/30/18 23:00 Dose: 999 mls/hr Sodium Chloride (Normal Saline) 1,000 mls @ 999 mls/hr IV STAT ONE Stop: 07/31/18 01:48 Last Admin: 07/31/18 00:56 Dose: 999 mls/hr Sodium Chloride (Normal Saline) 1,000 mls @ 125 mls/hr IV ASDIRECTED [facility] Pantoprazole Sodium 40 mg/ (Sodium Chloride) 10 mls @ 300 mls/hr IVPUSH DAILY [facility] Last Admin: 08/01/18 10:41 Dose: Not Given Iopamidol (Isovue-370 (76%)) 100 ml IVPUSH ONETIME ONE Stop: 07/30/18 23:56 Last Admin: 07/31/18 00:04 Dose: 100 ml Ketorolac Tromethamine (Toradol) 30 mg IVPUSH ONETIME ONE Stop: 07/30/18 22:56 Last Admin: 07/30/18 23:19 Dose: 30 mg Morphine Sulfate (Morphine) 4 mg IVPUSH ONETIME ONE Stop: 07/30/18 22:52 Last Admin: 07/30/18 23:00 Dose: 4 mg Morphine Sulfate (Morphine) 2 mg IVPUSH Q2H PRN PRN Reason: Pain Last Admin: 08/01/18 06:53 Dose: 2 mg Nicotine (Habitrol) 14 mg TRDERM DAILY [facility] Last Admin: 08/02/18 09:16 Dose: Not Given - Exam General: Reports: Alert, Oriented, Cooperative Lungs: Reports: Clear to Auscultation, Normal Respiratory Effort Cardiovascular: Reports: Regular Rate, Regular Rhythm GI/Abdominal Exam: Normal Bowel Sounds, Soft, Tender (LLQ around lap sites. hurts when he twists) Wound/Incisions: Reports: Healing Well (all lap sites healing well.), Dressing Dry and Intact. Denies: Erythema Psy/Mental Status: Reports: Alert, Normal Affect, Normal Mood <GayKaleb johnson M - Last Filed: 08/02/18 18:23> Discharge Summary - Hospital Course HPI Initial Comments: I have seen and examined the patient independently of Neeta Uriostegui CNP. I have discussed the case with her. I have reviewed and agreed with the plan of treatment as outlined for this patient by her. Please see orders. - Patient Data Vitals - Most Recent: Last Vital Signs Temp 36.9 C 08/02/18 12:00 Pulse 78 08/02/18 12:00 Resp 16 08/02/18 12:00 BP 114/59 L 08/02/18 12:00 Pulse Ox 96 08/02/18 12:00 I&O - Last 24 hours: Intake & Output 08/02/18 08/02/18 08/02/18 06:59 14:59 22:59 Intake Total 2270 2112 Output Total 2770 1500 Balance -500 612 Lab Results - Last 24 hrs: Laboratory Results - last 24 hr 08/02/18 08/02/18 Range/Units 05:25 05:25 WBC 5.69 (4.0-11.0) K/uL RBC 4.28 L (4.50-5.90) M/uL Hgb 12.3 L (13.0-17.0) g/dL Hct 36.4 L (38.0-50.0) % MCV 85.0 (80.0-98.0) fL MCH 28.7 (27.0-32.0) pg MCHC 33.8 (31.0-37.0) g/dL RDW Std Deviation 41.3 (28.0-62.0) fl RDW Coeff of Elisa 14 (11.0-15.0) % Plt Count 249 (150-400) K/uL MPV 9.40 (7.40-12.00) fL Neut % (Auto) 49.7 (48.0-80.0) % Lymph % (Auto) 37.3 (16.0-40.0) % [place] % (Auto) 7.9 (0.0-15.0) % Eos % (Auto) 4.4 (0.0-7.0) % Baso % (Auto) 0.7 (0.0-1.5) % Neut # (Auto) 2.8 (1.4-5.7) K/uL Lymph # (Auto) 2.1 (0.6-2.4) K/uL [place] # (Auto) 0.5 (0.0-0.8) K/uL Eos # (Auto) 0.3 (0.0-0.7) K/uL Baso # (Auto) 0.0 (0.0-0.1) K/uL Nucleated RBC % 0.0 /100WBC Nucleated RBCs # 0 K/uL Sodium 141 (136-148) mmol/L Potassium 3.9 (3.5-5.1) mmol/L Chloride 109 H (98-107) mmol/L Carbon Dioxide 23.6 (21.0-32.0) mmol/L BUN 8 (7.0-18.0) mg/dL Creatinine 0.8 (0.8-1.3) mg/dL Est Cr Clr Drug Dosing 114.51 mL/min Estimated GFR (MDRD) > 60.0 ml/min Glucose 77 (74-106) mg/dL Calcium 8.3 L (8.5-10.1) mg/dL Total Bilirubin 1.1 H (0.2-1.0) mg/dL AST 23 (15-37) IU/L ALT 45 (14-63) IU/L Alkaline Phosphatase 60 (46-116) U/L Total Protein 6.1 L (6.4-8.2) g/dL Albumin 3.3 L (3.4-5.0) g/dL Globulin 2.8 (2.6-4.0) g/dL Albumin/Globulin Ratio 1.2 (0.9-1.6) Lipase 114 (73-393) U/L Med Orders - Current: Current Medications Discontinued Medications Lisinopril/HCTZ (Lisinopril-Hctz 10-12.5 Mg) 1 tab PO DAILY [facility] Last Admin: 07/31/18 22:58 Dose: Not Given Lisinopril/HCTZ (Lisinopril-Hctz 10-12.5 Mg) 1 tab PO BEDTIME [facility] Last Admin: 08/01/18 20:05 Dose: 1 tab Hydromorphone HCl (Dilaudid) 1 mg IVPUSH ONETIME ONE Stop: 07/31/18 00:50 Last Admin: 07/31/18 00:56 Dose: 1 mg Sodium Chloride (Normal Saline) 1,000 mls @ 999 mls/hr IV STAT ONE Stop: 07/30/18 23:51 Last Admin: 07/30/18 23:00 Dose: 999 mls/hr Sodium Chloride (Normal Saline) 1,000 mls @ 999 mls/hr IV STAT ONE Stop: 07/31/18 01:48 Last Admin: 07/31/18 00:56 Dose: 999 mls/hr Sodium Chloride (Normal Saline) 1,000 mls @ 125 mls/hr IV ASDIRECTED [facility] Pantoprazole Sodium 40 mg/ (Sodium Chloride) 10 mls @ 300 mls/hr IVPUSH DAILY [facility] Last Admin: 08/01/18 10:41 Dose: Not Given Sodium Chloride (Normal Saline) 1,000 mls @ 200 mls/hr IV ASDIRECTED [facility] Last Admin: 08/02/18 09:13 Dose: 200 mls/hr Pantoprazole Sodium 40 mg/ (Sodium Chloride) 10 mls @ 300 mls/hr IVPUSH Q24H [facility] Last Admin: 08/02/18 06:47 Dose: 300 mls/hr Iopamidol (Isovue-370 (76%)) 100 ml IVPUSH ONETIME ONE Stop: 07/30/18 23:56 Last Admin: 07/31/18 00:04 Dose: 100 ml Ketorolac Tromethamine (Toradol) 30 mg IVPUSH ONETIME ONE Stop: 07/30/18 22:56 Last Admin: 07/30/18 23:19 Dose: 30 mg Lisinopril (Prinivil) 10 mg PO BEDTIME [facility] Last Admin: 08/01/18 20:05 Dose: 10 mg Metoprolol Succinate (Toprol Xl) 25 mg PO DAILY [facility] Last Admin: 08/02/18 09:13 Dose: 25 mg Morphine Sulfate (Morphine) 4 mg IVPUSH ONETIME ONE Stop: 07/30/18 22:52 Last Admin: 07/30/18 23:00 Dose: 4 mg Morphine Sulfate (Morphine) 2 mg IVPUSH Q2H PRN PRN Reason: Pain Last Admin: 08/01/18 06:53 Dose: 2 mg Nicotine (Habitrol) 14 mg TRDERM DAILY [facility] Last Admin: 08/02/18 09:16 Dose: Not Given Nicotine (Habitrol) 14 mg TRDERM DAILY@1700 [facility] Ondansetron HCl (Zofran) 4 mg IVPUSH Q4H PRN PRN Reason: Nausea Oxycodone HCl (Oxycodone) 5 mg PO Q4H PRN PRN Reason: Pain Last Admin: 08/02/18 13:18 Dose: 5 mg Sodium Chloride (Saline Flush) 10 ml FLUSH ASDIRECTED PRN PRN Reason: Keep Vein Open Sodium Chloride (Saline Flush) 2.5 ml FLUSH ASDIRECTED PRN PRN Reason: Keep Vein Open
[2018-08-02 13:05] VITALS: BP 114/59
[2018-08-02] MEDS ORDERED: Nicotine 14 MG/24 Hr Patch TRDERM SCH (17:00)
== END 2018-08-02 13:30 | disposition home or self-care (01) ==
LOC: MW.ED 22:15 → MW.MS 07-31 00:49 → UNDODISOB 08-02 13:30 → MW.MS 08-02 13:38
PROVIDERS: ADMIT Internal Medicine; ATTEND Internal Medicine
DX: K85.90 Acute pancreatitis without necrosis or infection, unspecified (principal); I25.10 Atherosclerotic heart disease of native coronary artery without angina pectoris; I10 Essential (primary) hypertension; I25.2 Old myocardial infarction; F17.200 Nicotine dependence, unspecified, uncomplicated; Z79.899 Other long term (current) drug therapy
CPT/HCPCS: 36415; 74177; 76705; 80053; 80061; 81003; 82150; 83690; 85025; 96361; 96374; 96375; 96376; 99285; A9270; C9113; G0378; J1170; J1885; J2270; J7040; J7050; Q9967

== ENCOUNTER 2018-12-09 06:42 | Day surgery (SDC) | payer MEDICARE, OTHER ==
[~2018-12-09 06:42] MED LIST changes: -Lidocaine 2% 5 ML SDV ONE; -Midazolam 1 MG/ML 2 ML SDV ONE; -Propofol 200 MG/20 ML SDV ONE
[2018-12-09] MEDS ORDERED: Bupivacaine 0.5% 30 ML SDV ONE (07:20)
[2018-12-09] MEDS ORDERED: Midazolam 1 MG/ML 2 ML SDV ONE (07:21)
[2018-12-09] MEDS ORDERED: fentaNYL 100 MCG/2 ML SDV ONE ×2 (07:22→09:10)
[2018-12-09] MEDS ORDERED: Lidocaine 2% 5 ML SDV ONE (07:22)
[2018-12-09] MEDS ORDERED: Propofol 200 MG/20 ML SDV ONE (07:23)
[2018-12-09] MEDS ORDERED: Rocuronium 100 MG/10 ML Syringe ONE (07:23)
--- NOTE | 2018-12-09 07:50 | PCM.PREANE ---
Preanesthetic Assessment - Anesthesia/Transfusion/Family Hx Anesthesia History: Prior Anesthesia Without Reaction Family History of Anesthesia Reaction: No Transfusion History: No Prior Transfusion(s) Intubation History: Unknown - Review of Systems General: No Symptoms Pulmonary: No Symptoms Cardiovascular: No Symptoms Gastrointestinal: No Symptoms Neurological: No Symptoms Other: Reports: None - Physical Assessment Vital Signs: Last Vital Signs Temp 97.5 F 12/09/18 06:40 Pulse 86 12/09/18 06:40 Resp 18 12/09/18 06:40 BP 128/78 12/09/18 06:40 Pulse Ox 93 L 12/09/18 06:40 Height: 5 ft 11 in Weight: 113.398 kg ASA Class: 3 Mental Status: Alert & Oriented x3 Airway Class: Mallampati = 3 Dentition: Reports: Edentulous (maxillary), Missing Tooth/Teeth (mandibular) ROM/Head Extension: Full Lungs: Clear to Auscultation, Normal Respiratory Effort Cardiovascular: Regular Rate, Regular Rhythm - Allergies Allergies/Adverse Reactions: Allergies Allergy/AdvReac Type Severity Reaction Status Date / Time No Known Allergies Allergy Verified 12/06/18 07:04 - Blood Blood Available: No - Anesthesia Plan Pre-Op Medication Ordered: None - Acknowledgements Anesthesia Type Planned: General Anesthesia Pt an Appropriate Candidate for the Planned Anesthesia: Yes Alternatives and Risks of Anesthesia Discussed w Pt/Guardian: Yes Pt/Guardian Understands and Agrees with Anesthesia Plan: Yes Additional Comments: PMH: AMI in 2013, heart cath was normal, htn, nogerd sx since laparoscopic heller myotomy, smoker, denies COPD but has room air spo2 of 94% PLAN: get PreAnesthesia Questionnaire HEENT History: Reports: Other (See Below) Other HEENT History: upper denture, hx fx jaw Cardiovascular History: Reports: CAD, Hypertension, HI Other Cardiovascular History: "mild HI" Respiratory History: Reports: None Gastrointestinal History: Reports: GERD Genitourinary History: Reports: None Musculoskeletal History: Reports: Arthritis, Back Pain, Chronic, Fracture Other Musculoskeletal History: hx of fx to both lower legs, hx fx arm and facial bones Neurological History: Reports: None Psychiatric History: Reports: None Endocrine/Metabolic History: Reports: Obesity/BMI 30+ Hematologic History: Reports: None Immunologic History: Reports: None Oncologic (Cancer) History: Reports: None Dermatologic History: Reports: None - Infectious Disease History Infectious Disease History: Reports: Chicken Pox, Mumps - Past Surgical History Head Surgeries/Procedures: Reports: None HEENT Surgical History: Reports: None Cardiovascular Surgical History: Reports: None Respiratory Surgical History: Reports: None GI Surgical History: Reports: Cholecystectomy, Other (See Below) Other GI Surgeries/Procedures: laproscopy heller myotomy Male Surgical History: Reports: None Endocrine Surgical History: Reports: None Neurological Surgical History: Reports: Lumbar Spine Other Neurological Surgeries/Procedures: back surgery x3 Musculoskeletal Surgical History: Reports: ORIF, Shoulder Surgery, Other (See Below) Other Musculoskeletal Surgeries/Procedures:: hardware to both lower extremities , hx rt shoulder surgery Oncologic Surgical History: Reports: None Dermatological Surgical History: Reports: None - SUBSTANCE USE Smoking Status *Q: Former Smoker Tobacco Use Within Last Twelve Months: No - HOME MEDS Home Medications: Home Meds Lisinopril/Hydrochlorothiazide [Lisinopril-Hctz 20-12.5 mg Tab] 1 tab PO DAILY 12/06/18 [History] Metoprolol Tartrate 25 mg PO DAILY 12/06/18 [History] Pantoprazole Sodium [Protonix] 40 mg PO DAILY 12/06/18 [History] - CURRENT (IN HOUSE) MEDS Current Meds: Current Medications Lactated Ringer's (Ringers, Lactated) 1,000 mls @ 125 mls/hr IV ASDIRECTED [facility] Last Admin: 12/09/18 06:21 Dose: 125 mls/hr Discontinued Medications Bupivacaine HCl (Marcaine 0.5%) Confirm Administered Dose 30 ml .ROUTE .STK-MED ONE Stop: 12/09/18 07:21 Fentanyl (Sublimaze) Confirm Administered Dose 100 mcg .ROUTE .STK-MED ONE Stop: 12/09/18 07:23 Lidocaine (Xylocaine-Mpf 2%) Confirm Administered Dose 5 ml .ROUTE .STK-MED ONE Stop: 12/09/18 07:23 Midazolam HCl (Versed 1 Mg/Ml) Confirm Administered Dose 2 mg .ROUTE .STK-MED ONE Stop: 12/09/18 07:22 Propofol (Diprivan 20 Ml) Confirm Administered Dose 200 mg .ROUTE .STK-MED ONE Stop: 12/09/18 07:24 Rocuronium [place] ([place]) Confirm Administered Dose 100 mg .ROUTE .STK-MED ONE Stop: 12/09/18 07:24
[2018-12-09] MEDS ORDERED: ceFAZolin/Dextrose,Iso-Osmotic 2 GM/50 ML Duplex Bag IV ONE (07:58)
[2018-12-09] MEDS ORDERED: ceFAZolin 1 GM Vial ONE (08:00)
[2018-12-09] MEDS ORDERED: Ondansetron 4 MG/2 ML SDV ONE (08:38)
[2018-12-09] MEDS ORDERED: Neostigmine Methylsulfate 1 MG/ML 5 ML Syringe ONE (08:39)
[2018-12-09] MEDS ORDERED: Phenylephrine 1% 10 MG/ML SDV ONE (08:39)
[2018-12-09] MEDS ORDERED: Glycopyrrolate 0.2 MG/ML SDV ONE (08:40)
[2018-12-09] MEDS ORDERED: fentaNYL 100 MCG/2 ML SDV IVPUSH PRN (08:53)
[2018-12-09] MEDS ORDERED: Ketorolac 30 MG/ML SDV ONE (09:42)
[2018-12-09] MEDS ORDERED: Sugammadex Sodium 200 MG/2 ML VIAL ONE (10:02)
[2018-12-09] MEDS ORDERED: Ondansetron 4 MG/2 ML SDV IVPUSH PRN ×2 (10:15→17:43)
[2018-12-09] MEDS ORDERED: Lactated Ringers 1,000 ML IV SCH ×2 (10:15→17:45)
--- NOTE | 2018-12-09 10:18 | PCM.OPNOTE ---
- General Post-Op/Procedure Note Date of Surgery/Procedure: 12/09/18 Operative Procedure(s): Repair right inguinal hernia with large Bard PerFix plug and patch. Repair left inguinal hernia with extra large Bard PerFix plug and patch. Pre Op Diagnosis: Bilateral reducible inguinal hernia Post-Op Diagnosis: Same Anesthesia Technique: General ET Tube (ASA III) Primary Surgeon: Saad Rosario Clinical Trial Head: Cheryl Buitrago Fluid Replacement, Intraop: 1,600 EBL in mLs: 10 Condition: Good Free Text/Narrative:: DICTATION 258299 CPT CODE 21092-20
[2018-12-09] MEDS ORDERED: Acetaminophen 1,000 MG in Premix Bag 1 BAG IV ONE (10:25)
[2018-12-09] MEDS: Acetaminophen/HYDROcodone 325-5 MG Tab PO PRN ×2 (12:14→19:42)
--- NOTE | 2018-12-09 12:18 | PCM.POSTAN ---
POST ANESTHESIA ASSESSMENT - MENTAL STATUS Mental Status: Alert, Oriented - VITAL SIGNS Vital Signs: Last Vital Signs Temp 99.0 F 12/09/18 10:44 Pulse 63 12/09/18 11:14 Resp 16 12/09/18 11:14 BP 121/78 12/09/18 11:14 Pulse Ox 96 12/09/18 11:14 - RESPIRATORY Respiratory Status: Respiratory Rate WNL, Airway Patent, O2 Saturation Stable - CARDIOVASCULAR CV Status: Pulse Rate WNL, Blood Pressure Stable - GASTROINTESTINAL GI Status: No Symptoms - POST OP HYDRATION Hydration Status: Adequate & Stable
--- NOTE | 2018-12-09 13:21 | OR ---
SURGEON: Saad Rosario M.D. DATE OF PROCEDURE: 12/09/2018 OPERATION PERFORMED: Bilateral inguinal hernia repair with large Bard PerFix plug and patch on the right side and extra-large Bard PerFix plug and patch on the left side. PRIMARY SURGEON: Saad Rosario MD. MEDICAL INTERPRETER: assignment desk assistant: LONNIE Walker. ANESTHESIA: General endotracheal. ASA CLASSIFICATION: III. PREOPERATIVE DIAGNOSIS: Bilateral reducible inguinal hernia. POSTOPERATIVE DIAGNOSIS: Bilateral reducible inguinal hernia. ESTIMATED BLOOD LOSS: 10 mL. INTRAOPERATIVE FLUID REPLACEMENT: 1600 mL of crystalloid. DESCRIPTION OF PROCEDURE: The patient was taken to the operating room and placed on the operating table in the supine position. Time-out was called for appropriate identification of the patient and procedure. Thigh-high TEDs and sequential compression boots were placed. Following satisfactory attainment of general endotracheal anesthesia, the abdomen was prepped and draped in a sterile fashion. The right inguinal hernia was approached first as this was the more symptomatic side. Skin incisions were marked out to allow for symmetry. The skin in the right inguinal crease was then infiltrated with 10 mL of 0.5% Marcaine solution. The skin incision was made and deepened through the subcutaneous tissue obtaining hemostasis with the use of electrocautery. Dissection was carried through the subcutaneous tissue. Small bleeding sites were electrocoagulated. Larger vessels were ligated with 2-0 Vicryl ties. The external oblique was identified and opened in the direction of its fibers down to the external ring. The external oblique was then retracted out of harm's way. The cord was mobilized. The patient does have a direct defect. The cord was mobilized and encircled with a Wood drain and retracted out of harm's way. With that accomplished, the defect was identified and circumscribed. A large Bard PerFix plug and patch was brought to the operating table and soaked in 1% Ancef solution. The plug was placed into the medial defect and secured with interrupted 0 Ethibond sutures. The patch was then placed over the floor and secured with multiple interrupted 0 Ethibond sutures beginning inferiorly and medially to Clemente's ligament, transitioning to the inguinal ligament, and superiorly to the transversalis fascia. The wings were brought around the cord laterally and again secured with a 0 Ethibond suture. All sutures were secured. The patient was then given a Valsalva maneuver to 40 cm of water. The repair was solid. The wound was then irrigated with 1% Ancef solution. The cord was returned to its anatomic location and the external oblique fascia was closed with running 3- 0 Vicryl. Kartik's fascia was closed with running 3-0 Vicryl. The skin was then closed with subcuticular 4-0 Monocryl. Our attention was now turned to the left side. Again, the skin was infiltrated with 0.5% Marcaine solution. The skin incision was made and deepened through the subcutaneous tissue obtaining hemostasis with the use of electrocautery. Again, the external oblique fascia was identified and opened in the direction of its fibers. The external oblique was then retracted and the spermatic cord was identified, mobilized, and encircled with a Henrry drain. The defect was again medially and this was actually larger than the initial hernia repair on the right side. An extra- large Bard PerFix plug and patch was brought to the operating table and again soaked in 1% Ancef solution. With the plug placed into the medial defect, this was again secured inferiorly to Clemente's ligament and secured superiorly to the transversalis fascia. The patch was then placed over this and secured in a similar fashion beginning medially and inferiorly to Clemente's ligament, transitioning to the inguinal ligament, and superiorly to the transversalis fascia. Again, the wings were brought around the cord laterally and secured with a 0 Ethibond suture. Once all the sutures had been tied, the patient was again given a Valsalva maneuver to 40 cm of water. The repair was felt to be solid. The wound was then irrigated with 1% Ancef solution and the cord returned to its anatomic location. The external oblique fascia was again reapproximated with 3-0 Vicryl. Kartik's fascia was closed with 3-0 Vicryl and the skin edges were reapproximated with subcuticular 4-0 Monocryl. Both incisions were Steri-Stripped and dressed with sterile Tegaderm pads. Sponge, needle, and instrument counts were all correct. The patient tolerated the procedure well. Following emergence from anesthesia and extubation, the patient was taken to recovery room in stable condition. BRITNI / KUMAR /[id number]
--- NOTE | 2018-12-09 13:52 | PCM48HPAN ---
Post Anesthesia Note - EVALUATION WITHIN 48HRS OF ANESTHETIC Vital Signs in Normal Range: Yes Patient Participated in Evaluation: Yes Respiratory Function Stable: Yes (SPO2=96% on RA) Airway Patent: Yes Cardiovascular Function Stable: Yes Hydration Status Stable: Yes Pain Control Satisfactory: Yes Nausea and Vomiting Control Satisfactory: Yes Mental Status Recovered: Yes Vital Signs: Last Vital Signs Temp 99.0 F 12/09/18 10:44 Pulse 65 12/09/18 11:24 Resp 16 12/09/18 11:24 BP 123/70 12/09/18 11:24 Pulse Ox 96 12/09/18 11:24 - COMMENTS/OBSERVATIONS Free Text/Narrative:: awaiting voiding, has recovered from anesthesia and cooperated with required post anesthesia evaluation
[2018-12-09] MEDS ORDERED: Acetaminophen/HYDROcodone 325-7.5 MG Tab PO ONE (16:30)
[2018-12-09] MEDS ORDERED: Morphine 10 MG/ML Syringe IVPUSH PRN (17:43)
--- NOTE | 2018-12-09 17:53 | PCM.HP.2 ---
H&P History of Present Illness - General Date of Service: 12/09/18 Admit Problem/Dx: Bilateral reducible inguinal hernia Source of Information: Patient History Limitations: Reports: No Limitations - History of Present Illness Initial Comments - Free Text/Narative: 53 y/o gentleman who underwent bilateral open inguinal hernia repair with mesh earlier today. Has been unable to void despite adequate IV and po intake. Also having significant difficulty getting adequate pain control. Onset of Symptoms: Reports: Today Location: Reports: Abdomen Quality: Reports: Pressure, Throbbing Severity: Moderate Improves with: Reports: Rest Worsens with: Reports: Movement Context: Reports: Sick Contact - Related Data Allergies/Adverse Reactions: Allergies Allergy/AdvReac Type Severity Reaction Status Date / Time No Known Allergies Allergy Verified 12/06/18 07:04 Home Medications: Home Meds Lisinopril/Hydrochlorothiazide [Lisinopril-Hctz 20-12.5 mg Tab] 1 tab PO DAILY 12/06/18 [History] Metoprolol Tartrate 25 mg PO DAILY 12/06/18 [History] Pantoprazole Sodium [Protonix] 40 mg PO DAILY 12/06/18 [History] Past Medical History HEENT History: Reports: Other (See Below) Other HEENT History: upper denture, hx fx jaw Cardiovascular History: Reports: CAD, Hypertension, [place] Other Cardiovascular History: "mild [place]" Respiratory History: Reports: None Gastrointestinal History: Reports: GERD Genitourinary History: Reports: None Musculoskeletal History: Reports: Arthritis, Back Pain, Chronic, Fracture Other Musculoskeletal History: hx of fx to both lower legs, hx fx arm and facial bones Neurological History: Reports: None Psychiatric History: Reports: None Endocrine/Metabolic History: Reports: Obesity/BMI 30+ Hematologic History: Reports: None Immunologic History: Reports: None Oncologic (Cancer) History: Reports: None Dermatologic History: Reports: None - Infectious Disease History Infectious Disease History: Reports: Chicken Pox, Mumps - Past Surgical History Head Surgeries/Procedures: Reports: None HEENT Surgical History: Reports: None Cardiovascular Surgical History: Reports: None Respiratory Surgical History: Reports: None GI Surgical History: Reports: Cholecystectomy, Other (See Below) Other GI Surgeries/Procedures: laproscopy heller myotomy Male Surgical History: Reports: None Endocrine Surgical History: Reports: None Neurological Surgical History: Reports: Lumbar Spine Other Neurological Surgeries/Procedures: back surgery x3 Musculoskeletal Surgical History: Reports: ORIF, Shoulder Surgery, Other (See Below) Other Musculoskeletal Surgeries/Procedures:: hardware to both lower extremities , hx rt shoulder surgery Oncologic Surgical History: Reports: None Dermatological Surgical History: Reports: None Social & Family History - Family History Family Medical History: Noncontributory - Tobacco Use Smoking Status *Q: Former Smoker Years of Tobacco use: 20 Used Tobacco, but Quit: Yes Month/Year Tobacco Last Used: quit smoking 1 year ago - Caffeine Use Caffeine Use: Reports: Energy Drinks, Soda, Tea - Recreational Drug Use Drug Use in Last 12 Months: No H&P Review of Systems - Review of Systems: Review Of Systems: See Below General: Reports: Decreased Appetite. Denies: Fever, Chills, Malaise, Weakness HEENT: Reports: No Symptoms Pulmonary: Denies: Shortness of Breath, Wheezing Cardiovascular: Denies: Chest Pain, Palpitations Gastrointestinal: Reports: Abdominal Pain, Decreased Appetite. Denies: Anorexia , Black Stool, Bloody Stool, Constipation, Diarrhea, Difficulty Swallowing, Nausea, Vomiting Genitourinary: Reports: Retention Musculoskeletal: Reports: No Symptoms Skin: Reports: No Symptoms Psychiatric: Reports: No Symptoms Neurological: Reports: No Symptoms Hematologic/Lymphatic: Reports: No Symptoms Immunologic: Reports: No Symptoms Exam - Exam Exam: See Below - Vital Signs Vital Signs: Last Vital Signs Temp 98.1 F 12/09/18 16:46 Pulse 75 12/09/18 16:46 Resp 20 12/09/18 16:46 BP 131/70 12/09/18 16:46 Pulse Ox 96 12/09/18 16:46 Weight: 250 lb - Exam Quality Assessment: Supplemental Oxygen General: Alert, Oriented, Cooperative, Moderate Distress. No: Sedated, Lethargic, Obtunded HEENT: Conjunctiva Clear, Nares Patent, Pupils Equal. No: Scleral Icterus Neck: Supple, Trachea Midline Lungs: Clear to Auscultation, Normal Respiratory Effort Cardiovascular: Regular Rate, Regular Rhythm GI/Abdominal Exam: Soft, No Distention, No Mass, Tender. No: Guarding, Rigid, Rebound (Male) Exam: Other (dressings from surgery today are dry.) Rectal (Males) Exam: Deferred Back Exam: Normal Inspection Extremities: Normal Inspection, Normal Range of Motion. No: Sallie's Sign Skin: Warm, Dry, Intact - Problem List (1) Bilateral inguinal hernia SNOMED Code(s): 76766283 ICD Code: K40.20 - BI INGUINAL HERNIA, W/O OBST OR GANGRENE, NOT SPCF RECUR Status: Acute Priority: Medium Current Visit: Yes Qualifiers: Obstruction and gangrene presence: without obstruction or gangrene Recurrence: not specified as recurrent Qualified Code(s): K40.20 - Bilateral inguinal hernia, without obstruction or gangrene, not specified as recurrent (2) Postoperative urinary retention SNOMED Code(s): 765655880 ICD Code: N99.89 - OTH POSTPROCEDURAL COMPLICATIONS AND DISORDERS OF SYS; R33.8 - OTHER RETENTION OF URINE Status: Acute Priority: High Current Visit: Yes Problem List Initiated/Reviewed/Updated: Yes Orders Last 24hrs: Active Orders 24 hr Category Date Time Status Patient Status [ADT] Routine ADT 12/09/18 17:41 Ordered Antiembolic Devices [RC] PER UNIT ROUTINE Care 12/09/18 06:00 Active Antiembolic Devices [RC] PER UNIT ROUTINE Care 12/09/18 10:15 Active Antiembolic Devices [RC] PER UNIT ROUTINE Care 12/09/18 10:15 Active Antiembolic Devices [RC] PER UNIT ROUTINE Care 12/09/18 17:43 Ordered Bradycardia-Neuroaxis Duramorp [RC] ROUTINE Care 12/09/18 08:53 Active Hypertension-Neuroaxis Duramor [RC] ROUTINE Care 12/09/18 08:53 Active Hypotension-Neuroaxis Duramorp [RC] ROUTINE Care 12/09/18 08:53 Active Oxygen Therapy [RC] ASDIRECTED Care 12/09/18 06:00 Active Oxygen Therapy [RC] ASDIRECTED Care 12/09/18 10:15 Active Pulse Oximetry [RC] ASDIRECTED Care 12/09/18 06:00 Active Pulse Oximetry [RC] INTERMITTENT Care 12/09/18 10:15 Active Pulse Oximetry [RC] INTERMITTENT Care 12/09/18 17:41 Ordered RT Incentive Spirometry [RC] Q1HWA Care 12/09/18 17:41 Ordered Ready for Discharge [RC] PER UNIT ROUTINE Care 12/09/18 10:20 Active Skin Preparation [RC] ASDIRECTED Care 12/09/18 06:00 Active Up ad Serena [RC] ASDIRECTED Care 12/09/18 17:41 Ordered Up ad Serena [RC] PER UNIT ROUTINE Care 12/09/18 10:15 Active Vital Signs [RC] PER UNIT ROUTINE Care 12/09/18 10:15 Active Vital Signs [RC] PER UNIT ROUTINE Care 12/09/18 17:41 Ordered Vital Signs [RC] Q1H Care 12/09/18 06:00 Active Advance Diet Instructions [DIET] Diet 12/09/18 Dinner Active Soft Diet [DIET] Diet 12/10/18 Breakfast Ordered Acetaminophen/HYDROcodone [[place] 325-5 MG] Med 12/09/18 10:15 Active 1 - 2 tab PO Q4H PRN Acetaminophen/HYDROcodone [[place] 325-7.5 MG] Med 12/09/18 17:44 Ordered 1 - 2 tab PO Q4H PRN Lactated Ringers @ 125 MLS/HR(1000ml) Med 12/09/18 17:45 Ordered Lactated Ringers [Ringers, Lactated] 1,000 ml IV ASDIRECTED Lactated Ringers [Ringers, Lactated] 1,000 ml Med 12/09/18 06:00 Active IV ASDIRECTED Lactated Ringers [Ringers, Lactated] 1,000 ml Med 12/09/18 10:15 Active IV ASDIRECTED Morphine Med 12/09/18 10:15 Active See Dose Instructions IVPUSH Q1H PRN Morphine Med 12/09/18 17:43 Ordered See Dose Instructions IVPUSH Q1H PRN Ondansetron [Zofran] Med 12/09/18 10:15 Active 4 mg IVPUSH Q4H PRN Ondansetron [Zofran] Med 12/09/18 17:43 Ordered 4 mg IVPUSH Q6H PRN fentaNYL [Sublimaze] Med 12/09/18 08:53 Active 50 mcg IVPUSH Q5M PRN Antiembolic Hose [OM.PC] Routine Oth 12/09/18 06:00 Ordered Antiembolic Hose [OM.PC] Routine Oth 12/09/18 10:15 Ordered Antiembolic Hose [OM.PC] Routine Oth 12/09/18 17:41 Ordered Ice Bag [Ice Therapy] [OM.PC] Routine Oth 12/09/18 16:47 Ordered Sequential Compression Device [OM.PC] Routine Oth 12/09/18 06:00 Ordered Sequential Compression Device [OM.PC] Routine Oth 12/09/18 10:15 Ordered Sequential Compression Device [OM.PC] Routine Oth 12/09/18 17:41 Ordered Medication Orders Hydrocodone Bitart/Acetaminophen ([place] 325-5 Mg) 1 - 2 tab PO Q4H PRN PRN Reason: Pain (moderate 4-6) Last Admin: 12/09/18 12:14 Dose: 2 tab Hydrocodone Bitart/Acetaminophen ([place] 325-7.5 Mg) 1 - 2 tab PO Q4H PRN PRN Reason: Pain (moderate 4-6) Fentanyl (Sublimaze) 50 mcg IVPUSH Q5M PRN PRN Reason: Pain (severe 7-10) Stop: 12/10/18 08:54 Lactated Ringer's (Ringers, Lactated) 1,000 mls @ 125 mls/hr IV ASDIRECTED [facility] Last Admin: 12/09/18 06:21 Dose: 125 mls/hr Lactated Ringer's (Ringers, Lactated) 1,000 mls @ 125 mls/hr IV ASDIRECTED [facility] Lactated Ringer's (Ringers, Lactated) 1,000 mls @ 125 mls/hr IV ASDIRECTED [facility] Morphine Sulfate (Morphine) 0 mg IVPUSH Q1H PRN PRN Reason: Pain (severe 7-10) Morphine Sulfate (Morphine) 0 mg IVPUSH Q1H PRN PRN Reason: Pain (severe 7-10) Ondansetron HCl (Zofran) 4 mg IVPUSH Q4H PRN PRN Reason: Nausea Ondansetron HCl (Zofran) 4 mg IVPUSH Q6H PRN PRN Reason: Nausea/Vomiting Assessment/Plan Comment:: Chaudhry catheter. Admit to [facility] for pain control. Discharge tomorrow. - Mortality Measure Prognosis:: Good
[2018-12-09] MEDS: Metoprolol Tartrate 25 MG Tab PO SCH (19:43)
[2018-12-09] MEDS: Pantoprazole 40 MG Tab.CR PO SCH (19:43)
[2018-12-09] MEDS: Morphine 10 MG/ML Syringe IVPUSH PRN (22:11)
[2018-12-10] MEDS: Morphine 10 MG/ML Syringe IVPUSH PRN (00:10)
[2018-12-10] MEDS: Acetaminophen/HYDROcodone 325-7.5 MG Tab PO PRN ×3 (00:12→07:33)
--- NOTE | 2018-12-10 07:40 | PCM.SURGPN ---
- General Info Date of Service: 12/10/18 Post-Op Diagnosis: Bilateral inguinal hernia repair. Post op urinary retention. Functional Status: Reports: Pain Controlled, Tolerating Diet, Ambulating - Review of Systems General: Denies: Fever, Weakness, Fatigue, Malaise HEENT: Reports: No Symptoms Pulmonary: Denies: Shortness of Breath, Cough Cardiovascular: Denies: Chest Pain Gastrointestinal: Reports: Decreased Appetite. Denies: Abdominal Pain, Constipation, Diarrhea, Difficulty Swallowing, Nausea, Vomiting Genitourinary: Reports: Retention Musculoskeletal: Reports: Other (bilateral surgical site pain) Skin: Denies: Cyanosis, Jaundice Neurological: Reports: No Symptoms Psychiatric: Reports: No Symptoms - Patient Data Vitals - Most Recent: Last Vital Signs Temp 98.4 F 12/10/18 04:00 Pulse 71 12/10/18 04:00 Resp 20 12/10/18 04:00 BP 122/63 12/10/18 04:00 Pulse Ox 93 L 12/10/18 04:00 Weight - Most Recent: 250 lb I&O - Last 24 Hours: Intake & Output 12/09/18 12/10/18 12/10/18 19:59 03:59 11:59 Intake Total 300 Output Total 2350 Balance -2049 Med Orders - Current: Current Medications Hydrocodone Bitart/Acetaminophen ([place] 325-5 Mg) 1 - 2 tab PO Q4H PRN PRN Reason: Pain (moderate 4-6) Last Admin: 12/09/18 19:42 Dose: 2 tab Hydrocodone Bitart/Acetaminophen ([place] 325-7.5 Mg) 1 - 2 tab PO Q4H PRN PRN Reason: Pain (moderate 4-6) Last Admin: 12/10/18 07:33 Dose: 2 tab Fentanyl (Sublimaze) 50 mcg IVPUSH Q5M PRN PRN Reason: Pain (severe 7-10) Stop: 12/10/18 08:54 Hydrochlorothiazide (Hydrochlorothiazide) 12.5 mg PO DAILY [facility] Lactated Ringer's (Ringers, Lactated) 1,000 mls @ 125 mls/hr IV ASDIRECTED [facility] Last Admin: 12/09/18 19:56 Dose: 125 mls/hr Lisinopril (Prinivil) 20 mg PO DAILY [facility] Metoprolol Tartrate (Lopressor) 25 mg PO DAILY [facility] Last Admin: 12/09/18 19:43 Dose: 25 mg Morphine Sulfate (Morphine) 0 mg IVPUSH Q1H PRN PRN Reason: Pain (severe 7-10) Last Admin: 12/10/18 00:10 Dose: 2 mg Morphine Sulfate (Morphine) 0 mg IVPUSH Q1H PRN PRN Reason: Pain (severe 7-10) Ondansetron HCl (Zofran) 4 mg IVPUSH Q4H PRN PRN Reason: Nausea Ondansetron HCl (Zofran) 4 mg IVPUSH Q6H PRN PRN Reason: Nausea/Vomiting Pantoprazole Sodium (Protonix) 40 mg PO DAILY [facility] Last Admin: 12/09/18 19:43 Dose: 40 mg Discontinued Medications Hydrocodone Bitart/Acetaminophen ([place] 325-7.5 Mg) 2 tab PO ONETIME ONE Stop: 12/09/18 16:31 Last Admin: 12/09/18 16:29 Dose: 2 tab Bupivacaine HCl (Marcaine 0.5%) Confirm Administered Dose 30 ml .ROUTE .STK-MED ONE Stop: 12/09/18 07:21 Cefazolin Sodium (Ancef) Confirm Administered Dose 1 gm .ROUTE .STK-MED ONE Stop: 12/09/18 08:01 Cefazolin Sodium/Dextrose (Ancef) Confirm Administered Dose 2 gm IV .STK-MED ONE Stop: 12/09/18 07:59 Fentanyl (Sublimaze) Confirm Administered Dose 100 mcg .ROUTE .STK-MED ONE Stop: 12/09/18 07:23 Fentanyl (Sublimaze) Confirm Administered Dose 100 mcg .ROUTE .STK-MED ONE Stop: 12/09/18 09:11 Glycopyrrolate (Robinul) Confirm Administered Dose 1 mg .ROUTE .STK-MED ONE Stop: 12/09/18 08:41 Lactated Ringer's (Ringers, Lactated) 1,000 mls @ 125 mls/hr IV ASDIRECTED [facility] Last Admin: 12/09/18 06:21 Dose: 125 mls/hr Lactated Ringer's (Ringers, Lactated) 1,000 mls @ 125 mls/hr IV ASDIRECTED [facility] Acetaminophen 1,000 mg/ Premix 100 mls @ 400 mls/hr IV NOW ONE Stop: 12/09/18 10:39 Last Admin: 12/09/18 19:20 Dose: Not Given Acetaminophen (Ofirmev) Confirm Administered Dose 100 mls @ as directed IV .STK- MED ONE Stop: 12/09/18 10:29 Last Admin: 12/09/18 10:32 Dose: 100 mls/hr Ketorolac Tromethamine (Toradol) Confirm Administered Dose 30 mg .ROUTE .STK- MED ONE Stop: 12/09/18 09:43 Lidocaine (Xylocaine-Mpf 2%) Confirm Administered Dose 5 ml .ROUTE .STK-MED ONE Stop: 12/09/18 07:23 Midazolam HCl (Versed 1 Mg/Ml) Confirm Administered Dose 2 mg .ROUTE .STK-MED ONE Stop: 12/09/18 07:22 Neostigmine Methylsulfate (Neostigmine) Confirm Administered Dose 5 mg .ROUTE .STK-MED ONE Stop: 12/09/18 08:40 Ondansetron HCl (Zofran) Confirm Administered Dose 8 mg .ROUTE .STK-MED ONE Stop: 12/09/18 08:39 Phenylephrine HCl (Jorge-Synephrine) Confirm Administered Dose 10 mg .ROUTE .STK- MED ONE Stop: 12/09/18 08:40 Propofol (Diprivan 20 Ml) Confirm Administered Dose 200 mg .ROUTE .STK-MED ONE Stop: 12/09/18 07:24 Rocuronium Jay (Zemuron) Confirm Administered Dose 100 mg .ROUTE .STK-MED ONE Stop: 12/09/18 07:24 Sugammadex Sodium (Bridion) Confirm Administered Dose 200 mg .ROUTE .STK-MED ONE Stop: 12/09/18 10:03 - Exam Wound/Incisions: Dressing Dry and Intact General: Alert, Oriented, Cooperative, Mild Distress HEENT: Pupils Equal, Pupils Reactive, EOMI Neck: Supple Lungs: Clear to Auscultation, Normal Respiratory Effort Cardiovascular: Regular Rate, Regular Rhythm GI/Abdominal Exam: Normal Bowel Sounds, Soft, Non-Tender, No Distention. No: Guarding, Rigid, Rebound Extremities: Normal Inspection, Normal Range of Motion, Non-Tender. No: Sallie' s Sign Skin: Warm, Dry, Intact Neurological: No New Focal Deficit Psy/Mental Status: Alert, Normal Affect, Normal Mood - Problem List & Annotations (1) Bilateral inguinal hernia SNOMED Code(s): 31235511 Code(s): K40.20 - BI INGUINAL HERNIA, W/O OBST OR GANGRENE, NOT SPCF RECUR Status: Acute Priority: Medium Current Visit: Yes Qualifiers: Obstruction and gangrene presence: without obstruction or gangrene Recurrence: not specified as recurrent Qualified Code(s): K40.20 - Bilateral inguinal hernia, without obstruction or gangrene, not specified as recurrent (2) Postoperative urinary retention SNOMED Code(s): 123220732 Code(s): N99.89 - OTH POSTPROCEDURAL COMPLICATIONS AND DISORDERS OF SYS; R33.8 - OTHER RETENTION OF URINE Status: Acute Priority: High Current Visit: Yes - Problem List Review Problem List Initiated/Reviewed/Updated: Yes - My Orders Last 24 Hours: Active Orders 24 hr Category Date Time Status Patient Status [ADT] Routine ADT 12/09/18 17:41 Active Antiembolic Devices [RC] PER UNIT ROUTINE Care 12/09/18 17:43 Active Communication Order [RC] ROUTINE Care 12/10/18 07:35 Ordered Oxygen Therapy [RC] ASDIRECTED Care 12/09/18 10:15 Active Pulse Oximetry [RC] INTERMITTENT Care 12/09/18 17:41 Active RT Incentive Spirometry [RC] Q1HWA Care 12/09/18 17:41 Active Ready for Discharge [RC] PER UNIT ROUTINE Care 12/09/18 10:20 Active Up ad Serena [RC] ASDIRECTED Care 12/09/18 17:41 Active Vital Signs [RC] Q4H Care 12/09/18 17:41 Active Soft Diet [DIET] Diet 12/10/18 Breakfast Active Acetaminophen/HYDROcodone [[place] 325-5 MG] Med 12/09/18 10:15 Active 1 - 2 tab PO Q4H PRN Acetaminophen/HYDROcodone [[place] 325-7.5 MG] Med 12/09/18 17:44 Active 1 - 2 tab PO Q4H PRN Lactated Ringers [Ringers, Lactated] 1,000 ml Med 12/09/18 17:45 Active IV ASDIRECTED Lisinopril [Prinivil] Med 12/10/18 09:00 Active 20 mg PO DAILY Metoprolol Tartrate [Lopressor] Med 12/09/18 18:15 Active 25 mg PO DAILY Morphine Med 12/09/18 10:15 Active See Dose Instructions IVPUSH Q1H PRN Morphine Med 12/09/18 17:43 Active See Dose Instructions IVPUSH Q1H PRN Ondansetron [Zofran] Med 12/09/18 10:15 Active 4 mg IVPUSH Q4H PRN Ondansetron [Zofran] Med 12/09/18 17:43 Active 4 mg IVPUSH Q6H PRN Pantoprazole [ProTONIX] Med 12/09/18 18:15 Active 40 mg PO DAILY fentaNYL [Sublimaze] Med 12/09/18 08:53 Active 50 mcg IVPUSH Q5M PRN hydroCHLOROthiazide Med 12/10/18 09:00 Active 12.5 mg PO DAILY Antiembolic Hose [OM.PC] Routine Oth 12/09/18 10:15 Ordered Antiembolic Hose [OM.PC] Routine Oth 12/09/18 17:41 Ordered Ice Bag [Ice Therapy] [OM.PC] Routine Oth 12/09/18 16:47 Ordered Sequential Compression Device [OM.PC] Routine Oth 12/09/18 10:15 Ordered Sequential Compression Device [OM.PC] Routine Oth 12/09/18 17:41 Ordered Medication Orders Hydrocodone Bitart/Acetaminophen ([place] 325-5 Mg) 1 - 2 tab PO Q4H PRN PRN Reason: Pain (moderate 4-6) Last Admin: 12/09/18 19:42 Dose: 2 tab Admin: 12/09/18 12:14 Dose: 2 tab Hydrocodone Bitart/Acetaminophen ([place] 325-7.5 Mg) 1 - 2 tab PO Q4H PRN PRN Reason: Pain (moderate 4-6) Last Admin: 12/10/18 07:33 Dose: 2 tab Admin: 12/10/18 03:42 Dose: 2 tab Admin: 12/10/18 00:12 Dose: 2 tab Fentanyl (Sublimaze) 50 mcg IVPUSH Q5M PRN PRN Reason: Pain (severe 7-10) Stop: 12/10/18 08:54 Hydrochlorothiazide (Hydrochlorothiazide) 12.5 mg PO DAILY [facility] Lactated Ringer's (Ringers, Lactated) 1,000 mls @ 125 mls/hr IV ASDIRECTED [facility] Last Admin: 12/09/18 19:56 Dose: 125 mls/hr Lisinopril (Prinivil) 20 mg PO DAILY [facility] Metoprolol Tartrate (Lopressor) 25 mg PO DAILY [facility] Last Admin: 12/09/18 19:43 Dose: 25 mg Morphine Sulfate (Morphine) 0 mg IVPUSH Q1H PRN PRN Reason: Pain (severe 7-10) Last Admin: 12/10/18 00:10 Dose: 2 mg Admin: 12/09/18 22:11 Dose: 2 mg Morphine Sulfate (Morphine) 0 mg IVPUSH Q1H PRN PRN Reason: Pain (severe 7-10) Ondansetron HCl (Zofran) 4 mg IVPUSH Q4H PRN PRN Reason: Nausea Ondansetron HCl (Zofran) 4 mg IVPUSH Q6H PRN PRN Reason: Nausea/Vomiting Pantoprazole Sodium (Protonix) 40 mg PO DAILY [facility] Last Admin: 12/09/18 19:43 Dose: 40 mg - Assessment Assessment (Free Text/Narrative):: Patient has had a fair night. Pain is better controlled. Mainly c/o right sided discomfort. Chaudhry draining clear yellow urine. - Plan Plan (Free Text/Narrative):: Home today with Chaudhry in. To clinic Wednesday for Chaudhry removal. 10 day post op clinic appointment as originally scheduled. Patient may use Ibuprofen during the day as needed but cautioned to take it with something to eat.
[2018-12-10] MEDS ORDERED: Lisinopril 10 MG Tab PO SCH (09:00)
[2018-12-10] MEDS ORDERED: Hydrochlorothiazide 12.5 MG Cap PO SCH (09:00)
[2018-12-10] MEDS: Pantoprazole 40 MG Tab.CR PO SCH (09:00)
[2018-12-10] MEDS: Metoprolol Tartrate 25 MG Tab PO SCH (09:00)
[2018-12-10 10:43] VITALS: BP 195/83
[2018-12-10] MEDS: Acetaminophen/HYDROcodone 325-5 MG Tab PO PRN (10:56)
== END 2018-12-10 11:20 | disposition home or self-care (01) ==
LOC: MW.SDS 06:42 → MW.MS 18:20 → MW.SDS 12-10 11:20
PROVIDERS: ATTEND Surgery
DX: K40.20 Bilateral inguinal hernia, without obstruction or gangrene, not specified as recurrent (principal); N99.89 Other postprocedural complications and disorders of genitourinary system; R33.8 Other retention of urine; I25.10 Atherosclerotic heart disease of native coronary artery without angina pectoris; I10 Essential (primary) hypertension; I25.2 Old myocardial infarction; K21.9 Gastro-esophageal reflux disease without esophagitis; K22.0 Achalasia of cardia; M19.90 Unspecified osteoarthritis, unspecified site; M67.929 Unspecified disorder of synovium and tendon, unspecified upper arm; Z87.891 Personal history of nicotine dependence; Z79.899 Other long term (current) drug therapy
CPT/HCPCS: 49505; A9270; J0131; J0690; J1885; J2001; J2250; J2270; J2370; J2405; J2704; J3010; J3490; J7120; C1781

== ENCOUNTER 2020-04-21 19:19 | Observation (INO) | payer MEDICARE, OTHER ==
[2020-04-21] MEDS ORDERED: Ondansetron 4 MG/2 ML SDV IVPUSH ONE (19:27)
--- NOTE | 2020-04-21 19:27 | EDM.PDOC ---
ED HPI GENERAL MEDICAL PROBLEM - General Stated Complaint: VOMITING Time Seen by Provider: 04/21/20 19:38 Source of Information: Reports: Patient History Limitations: Reports: No Limitations - History of Present Illness INITIAL COMMENTS - FREE TEXT/NARRATIVE: HISTORY AND PHYSICAL: History of present illness: Patient is a 54-year-old male who presents to the emergency room with complaints of nausea, vomiting and upper abdominal discomfort since 9 AM. He does not recall eating anything that would have upset his stomach, nor been around anyone who is recently been ill. He states his mother is currently dying at home on hospice and does have increased stress related to this. He denies any alcohol or drug abuse. Patient denies any fever, chills, headache, change in vision, syncope or near syncope. Denies any chest pain, back pain, shortness of breath, hemoptysis, or cough. Denies any diarrhea, constipation or dysuria. Has not noted any blood in urine or stool. Patient has not been eating or drinking appropriately; states "it just comes right back up". Notes he recently was tested for COVID-19 a few days ago; Negative. Review of systems: As per history of present illness and below otherwise all systems reviewed and negative. Past medical history: As per history of present illness and as reviewed below otherwise noncontributory. Surgical history: As per history of present illness and as reviewed below otherwise noncontributory. Social history: See social history for further information Family history: As per history of present illness and as reviewed below otherwise noncontributory. Physical exam: General: Well developed and well nourished 54-year-old male. Alert and orientated x 3. Nontoxic in appearance and in no acute distress. Vital signs are stable and have been reviewed by me. Nursing notes were reviewed. HEENT: Atraumatic, normocephalic, pupils equal and reactive bilaterally, negative for conjunctival pallor or scleral icterus, mucous membranes moist, trachea midline. No drooling or trismus noted. No meningeal signs. No hot potato voice noted. Lungs: Clear to auscultation, breath sounds equal bilaterally, chest nontender. Normal work of breathing, no accessory muscles used. Heart: S1S2, regular rate and rhythm without overt murmur Abdomen: Soft, nondistended, nontender. Negative for masses or costovertebral tenderness. Actively dry heaving during assessment. Pelvis: Stable nontender. Skin: Intact, warm, dry. No lesions or rashes noted. Hematologic: No petechiae or purpra. Mucosa appropriate color and normal nail bed color and refill. Extremities: Atraumatic, moves all extremities per self without difficulty or deficits, negative for cords or calf pain. Neurovascular unremarkable. Neuro: Awake, alert, oriented. Cranial nerves II through XII unremarkable. Cerebellum unremarkable. Motor and sensory unremarkable throughout. Exam nonfocal. Psychiatric: Mood and affect are appropriate. Normal thought process. Answering questions appropriately. Notes: Patient has a slight leukocytosis with an elevated lipase. Will order a CT abd/pelvis. Patient states his nausea is manageable and pain is minimal after IV fluids and medications. COVID-19 negative. Patient denied drug use with the exception of occasional marijuana, DRGU shows polysubstance abuse. Negative ETOH. CT abdomen/pelvis shows benign-appearing cyst in the liver dome. Cholecystectomy. Mild stable biliary dilation. No liver mass. Stable small cysts in the head of the pancreas. No bowel obstruction. No adenopathy, free air, or free fluid. Bilateral inguinal hernia repairs. Mild colonic diverticulosis but no evidence for acute diverticulitis. I have talked with the patient about today's findings, in addition to providing specific details for plan of care. Dr Mejía was consulted on this case and she is agreeable to accepting this patient. Diagnostics: CBC, CMP, Lipase, COVID-19, CT abd/pelvis, UA, DRUG screen, ETOH Therapeutics: IV fluids, Zofran, Pepcid, Morphine Impression: Pancreatitis Polysubstance Abuse Plan: Definitive disposition and diagnosis as appropriate pending reevaluation and review of above. upper abdominal Pain Score (Numeric/FACES): 8 - Related Data Allergies Allergy/AdvReac Type Severity Reaction Status Date / Time No Known Allergies Allergy Verified 04/21/20 19:37 Home Meds: Home Meds Lisinopril/Hydrochlorothiazide [Lisinopril-Hctz 20-12.5 mg Tab] 1 tab PO DAILY 12/06/18 [History] Metoprolol Tartrate 25 mg PO DAILY 12/06/18 [History] Amoxicillin/Clavulanate K [Augmentin 875-125 MG] 1 tab PO BID 04/21/20 [History] Past Medical History HEENT History: Reports: Other (See Below) Other HEENT History: upper denture, hx fx jaw Cardiovascular History: Reports: CAD, Hypertension, RI Other Cardiovascular History: "mild RI" Respiratory History: Reports: None Gastrointestinal History: Reports: GERD Genitourinary History: Reports: None Musculoskeletal History: Reports: Arthritis, Back Pain, Chronic, Fracture Other Musculoskeletal History: hx of fx to both lower legs, hx fx arm and facial bones Neurological History: Reports: None Psychiatric History: Reports: None Endocrine/Metabolic History: Reports: Obesity/BMI 30+ Hematologic History: Reports: None Immunologic History: Reports: None Oncologic (Cancer) History: Reports: None Dermatologic History: Reports: None - Infectious Disease History Infectious Disease History: Reports: Chicken Pox, Mumps - Past Surgical History Head Surgeries/Procedures: Reports: None HEENT Surgical History: Reports: None Cardiovascular Surgical History: Reports: None Respiratory Surgical History: Reports: None GI Surgical History: Reports: Cholecystectomy, Other (See Below) Other GI Surgeries/Procedures: laproscopy heller myotomy Male Surgical History: Reports: None Endocrine Surgical History: Reports: None Neurological Surgical History: Reports: Lumbar Spine Other Neurological Surgeries/Procedures: back surgery x3 Musculoskeletal Surgical History: Reports: ORIF, Shoulder Surgery, Other (See Below) Other Musculoskeletal Surgeries/Procedures:: hardware to both lower extremities, hx rt shoulder surgery Oncologic Surgical History: Reports: None Dermatological Surgical History: Reports: None Social & Family History - Family History Family Medical History: No Pertinent Family History - Caffeine Use Caffeine Use: Reports: Coffee ED ROS GENERAL - Review of Systems Review Of Systems: Comprehensive ROS is negative, except as noted in HPI. ED EXAM, GI/ABD - Physical Exam Exam: See Below (See dictation) Course - Vital Signs Last Recorded V/S: Last Vital Signs Temp 97.4 F 04/21/20 19:25 Pulse 75 04/21/20 19:25 Resp 18 04/21/20 19:25 BP 173/94 H 04/21/20 19:25 Pulse Ox 98 04/21/20 19:25 - Orders/Labs/Meds Orders: Active Orders 24 hr Category Date Time Status Admission Status [Patient Status] [ADT] Stat ADT 04/21/20 21:31 Active Sodium Chloride 0.9% [Normal Saline] 1,000 ml Med 04/21/20 19:30 Active IV ASDIRECTED Sodium Chloride 0.9% [Normal Saline] 1,000 ml Med 04/21/20 21:25 Active IV STAT Medication Orders Sodium Chloride (Normal Saline) 1,000 mls @ 999 mls/hr IV ASDIRECTED NAVEEN Last Admin: 04/21/20 19:40 Dose: 999 mls/hr Documented by: JULIET Sodium Chloride (Normal Saline) 1,000 mls @ 150 mls/hr IV STAT ONE Stop: 04/22/20 04:04 Labs: Laboratory Tests 04/21/20 04/21/20 04/21/20 Range/Units 19:30 19:30 19:30 WBC 13.79 H (4.0-11.0) K/uL RBC 5.87 (4.50-5.90) M/uL Hgb 17.2 H (13.0-17.0) g/dL Hct 51.0 H (38.0-50.0) % MCV 86.9 (80.0-98.0) fL MCH 29.3 (27.0-32.0) pg MCHC 33.7 (31.0-37.0) g/dL RDW Std Deviation 42.9 (28.0-62.0) fl RDW Coeff of Elisa 13 (11.0-15.0) % Plt Count 219 (150-400) K/uL MPV 9.70 (7.40-12.00) fL Neut % (Auto) 83.7 H (48.0-80.0) % Lymph % (Auto) 7.0 L (16.0-40.0) % Cook % (Auto) 5.4 (0.0-15.0) % Eos % (Auto) 3.7 (0.0-7.0) % Baso % (Auto) 0.2 (0.0-1.5) % Neut # (Auto) 11.5 H (1.4-5.7) K/uL Lymph # (Auto) 1.0 (0.6-2.4) K/uL Cook # (Auto) 0.8 (0.0-0.8) K/uL Eos # (Auto) 0.5 (0.0-0.7) K/uL Baso # (Auto) 0.0 (0.0-0.1) K/uL Nucleated RBC % 0.0 /100WBC Nucleated RBCs # 0 K/uL Sodium 136 (136-148) mmol/L Potassium 4.4 (3.5-5.1) mmol/L Chloride 102 (98-107) mmol/L Carbon Dioxide 25.0 (21.0-32.0) mmol/L BUN 22 H (7.0-18.0) mg/dL Creatinine 1.2 (0.8-1.3) mg/dL Est Cr Clr Drug Dosing 75.44 mL/min Estimated GFR (MDRD) > 60.0 ml/min Glucose 117 H (74-106) mg/dL Calcium 9.3 (8.5-10.1) mg/dL Total Bilirubin 1.1 H (0.2-1.0) mg/dL AST 138 H (15-37) IU/L ALT 96 H (14-63) IU/L Alkaline Phosphatase 115 (46-116) U/L Total Protein 8.3 H (6.4-8.2) g/dL Albumin 4.4 (3.4-5.0) g/dL Globulin 3.9 (2.6-4.0) g/dL Albumin/Globulin Ratio 1.1 (0.9-1.6) Lipase 1164 H (73-393) U/L Urine Color Urine Appearance Urine pH (5.0-8.0) Ur Specific Ventura (1.001-1.035) Urine Protein (NEGATIVE) mg/dL Urine Glucose (UA) (NEGATIVE) mg/dL Urine Ketones (NEGATIVE) mg/dL Urine Occult Blood (NEGATIVE) Urine Nitrite (NEGATIVE) Urine Bilirubin (NEGATIVE) Urine Urobilinogen (<2.0) EU/dL Ur Leukocyte Esterase (NEGATIVE) Urine Opiates Screen (NEGATIVE) Ur Oxycodone Screen (NEGATIVE) Urine Methadone Screen (NEGATIVE) Ur Barbiturates Screen (NEGATIVE) Ur Phencyclidine Scrn (NEGATIVE) Ur Amphetamine Screen (NEGATIVE) U Methamphetamines Scrn (NEGATIVE) U Benzodiazepines Scrn (NEGATIVE) U Cocaine Metab Screen (NEGATIVE) U Marijuana (THC) Screen (NEGATIVE) Ethyl Alcohol < 3.0 mg/dL SARS-CoV-2 RNA (DEX) (NEGATIVE) 04/21/20 04/21/20 04/21/20 Range/Units 20:20 20:55 20:55 WBC (4.0-11.0) K/uL RBC (4.50-5.90) M/uL Hgb (13.0-17.0) g/dL Hct (38.0-50.0) % MCV (80.0-98.0) fL MCH (27.0-32.0) pg MCHC (31.0-37.0) g/dL RDW Std Deviation (28.0-62.0) fl RDW Coeff of Elisa (11.0-15.0) % Plt Count (150-400) K/uL MPV (7.40-12.00) fL Neut % (Auto) (48.0-80.0) % Lymph % (Auto) (16.0-40.0) % Cook % (Auto) (0.0-15.0) % Eos % (Auto) (0.0-7.0) % Baso % (Auto) (0.0-1.5) % Neut # (Auto) (1.4-5.7) K/uL Lymph # (Auto) (0.6-2.4) K/uL Cook # (Auto) (0.0-0.8) K/uL Eos # (Auto) (0.0-0.7) K/uL Baso # (Auto) (0.0-0.1) K/uL Nucleated RBC % /100WBC Nucleated RBCs # K/uL Sodium (136-148) mmol/L Potassium (3.5-5.1) mmol/L Chloride (98-107) mmol/L Carbon Dioxide (21.0-32.0) mmol/L BUN (7.0-18.0) mg/dL Creatinine (0.8-1.3) mg/dL Est Cr Clr Drug Dosing mL/min Estimated GFR (MDRD) ml/min Glucose (74-106) mg/dL Calcium (8.5-10.1) mg/dL Total Bilirubin (0.2-1.0) mg/dL AST (15-37) IU/L ALT (14-63) IU/L Alkaline Phosphatase (46-116) U/L Total Protein (6.4-8.2) g/dL Albumin (3.4-5.0) g/dL Globulin (2.6-4.0) g/dL Albumin/Globulin Ratio (0.9-1.6) Lipase (73-393) U/L Urine Color YELLOW Urine Appearance CLEAR Urine pH 6.5 (5.0-8.0) Ur Specific [place] 1.020 (1.001-1.035) Urine Protein NEGATIVE (NEGATIVE) mg/dL Urine Glucose (UA) NEGATIVE (NEGATIVE) mg/dL Urine Ketones NEGATIVE (NEGATIVE) mg/dL Urine Occult Blood NEGATIVE (NEGATIVE) Urine Nitrite NEGATIVE (NEGATIVE) Urine Bilirubin NEGATIVE (NEGATIVE) Urine Urobilinogen 0.2 (<2.0) EU/dL Ur Leukocyte Esterase NEGATIVE (NEGATIVE) Urine Opiates Screen POSITIVE (NEGATIVE) Ur Oxycodone Screen NEGATIVE (NEGATIVE) Urine Methadone Screen POSITIVE (NEGATIVE) Ur Barbiturates Screen NEGATIVE (NEGATIVE) Ur Phencyclidine Scrn NEGATIVE (NEGATIVE) Ur Amphetamine Screen POSITIVE (NEGATIVE) U Methamphetamines Scrn POSITIVE (NEGATIVE) U Benzodiazepines Scrn NEGATIVE (NEGATIVE) U Cocaine Metab Screen NEGATIVE (NEGATIVE) U Marijuana (THC) Screen POSITIVE (NEGATIVE) Ethyl Alcohol mg/dL SARS-CoV-2 RNA (DEX) NEGATIVE (NEGATIVE) Meds: Medications Generic Name Dose Route Start Last Admin Trade Name Freq PRN Reason Stop Dose Admin Sodium Chloride 1,000 mls @ 999 mls/hr 04/21/20 19:30 04/21/20 19:40 Normal Saline IV 999 mls/hr ASDIRECTED NAVEEN Administration Sodium Chloride 1,000 mls @ 150 mls/hr 04/21/20 21:25 Normal Saline IV 04/22/20 04:04 STAT ONE Discontinued Medications Generic Name Dose Route Start Last Admin Trade Name Freq PRN Reason Stop Dose Admin Famotidine 20 mg 04/21/20 19:59 04/21/20 20:23 Pepcid IVPUSH 04/21/20 20:00 20 mg ONETIME ONE Administration Ketorolac Tromethamine 30 mg 04/21/20 19:59 04/21/20 20:24 Toradol IVPUSH 04/21/20 20:00 Not Given ONETIME ONE Morphine Sulfate 4 mg 04/21/20 20:13 04/21/20 20:23 Morphine IVPUSH 04/21/20 20:14 4 mg ONETIME ONE Administration Ondansetron HCl 4 mg 04/21/20 19:27 04/21/20 19:40 Zofran IVPUSH 04/21/20 19:28 4 mg ONETIME ONE Administration Departure - Departure Time of Disposition: 21:33 Disposition: Refer to Observation Clinical Impression: Polysubstance abuse Pancreatitis Qualifiers: Chronicity: acute Pancreatitis type: unspecified pancreatitis type Acute pancreatitis complication: no infection or necrosis Qualified Code(s): K85.90 - Acute pancreatitis without necrosis or infection, unspecified - Discharge Information Referrals: PCP,None [Primary Care Provider] - Sepsis Event Note (ED) - Focused Exam Vital Signs: Vital Signs Temp Pulse Resp BP Pulse Ox 04/21/20 19:25 97.4 F 75 18 173/94 H 98 - My Orders Last 24 Hours: My Active Orders 04/21/20 19:30 Sodium Chloride 0.9% [Normal Saline] 1,000 ml IV ASDIRECTED 04/21/20 21:25 Sodium Chloride 0.9% [Normal Saline] 1,000 ml IV STAT 04/21/20 21:31 Admission Status [Patient Status] [ADT] Stat - Assessment/Plan Last 24 Hours: My Active Orders 04/21/20 19:30 Sodium Chloride 0.9% [Normal Saline] 1,000 ml IV ASDIRECTED 04/21/20 21:25 Sodium Chloride 0.9% [Normal Saline] 1,000 ml IV STAT 04/21/20 21:31 Admission Status [Patient Status] [ADT] Stat
[2020-04-21] MEDS ORDERED: Sodium Chloride 0.9% 1,000 ML IV SCH (19:30)
[2020-04-21] MEDS ORDERED: Famotidine 20 MG/2 ML SDV IVPUSH ONE (19:59)
[2020-04-21] MEDS ORDERED: Ketorolac 30 MG/ML SDV IVPUSH ONE (19:59)
[2020-04-21 20:04] LABS: BLOOD UREA NITROGEN,BUN 22 mg/dL (7.0-18.0); CHLORIDE,CL 102 mmol/L (98-107); GLUCOSE RANDOM 117 mg/dL (74-106); LIPASE 1164 U/L (73-393); POTASSIUM,K 4.4 mmol/L (3.5-5.1); SODIUM,NA 136 mmol/L (136-148)
[2020-04-21] MEDS ORDERED: Morphine 4 MG/ML Syringe IVPUSH ONE (20:13)
[2020-04-21] MEDS ORDERED: Sodium Chloride 0.9% 1,000 ML IV ONE (21:25)
--- NOTE | 2020-04-21 21:29 | CT ---
INDICATION: Upper abdominal pain. TECHNIQUE: IV contrast-enhanced CT abdomen and pelvis. 100 mL [id number] injected. COMPARISON: 07/30/[address] FINDINGS: Benign-appearing cyst in the liver dome. Cholecystectomy. Mild stable biliary dilation. No liver mass. Stable small cysts in the head of the pancreas. No bowel obstruction. No adenopathy, free air, or free fluid. Bilateral inguinal hernia repairs. Mild colonic diverticulosis but no evidence for acute diverticulitis. IMPRESSION: No acute findings. Please note that all CT scans at this facility use dose modulation, iterative reconstruction, and/or weight-based dosing when appropriate to reduce radiation dose to as low as reasonably achievable. Dictated by Lupillo Iniguez MD @ Apr 21 2020 9:27PM Signed by Dr. Lupillo Iniguez @ Apr 21 2020 9:27PM
[2020-04-21] MEDS ORDERED: Iopamidol 755 MG/ML 500 ML Multipack Bottle IVPUSH STA (21:41)
[2020-04-21] MEDS ORDERED: Albuterol/Ipratropium 3.0-0.5 MG/3 ML Neb Soln NEB PRN (23:28)
[2020-04-21] MEDS ORDERED: Morphine 2 MG/ML SYRINGE IVPUSH PRN (23:28)
[2020-04-21] MEDS ORDERED: Enoxaparin 40 MG/0.4 ML Syringe SUBCUT SCH (23:30)
[2020-04-21] MEDS ORDERED: Lactated Ringers 1,000 ML IV SCH (23:30)
[2020-04-21] MEDS: Ondansetron 4 MG/2 ML SDV IVPUSH PRN (23:56)
[2020-04-22] MEDS: Pantoprazole 40 MG Vial IV SCH ×2 (00:02→08:50)
--- NOTE | 2020-04-22 00:31 | PCM.HP.2 ---
H&P History of Present Illness - General Date of Service: 04/22/20 Admit Problem/Dx: Admission Diagnosis/Problem Admission Diagnosis/Problem Pancreatitis - History of Present Illness Initial Comments - Free Text/Narative: 53 yo male with pmh of achalasia surgery [place] in 2019, pancreatitis. He presents to the ED with complaint of abdominal pain for past 2 weeks getting worse since this AM. He reports band of pain across his abdomen. He denies any blood in his stool, nausea or vomiting. Pain is associated with N/V. No diarrhea Patient states that he had a proedure few months back "to remove the scar tissue from his abdomen", patient doesnt recall eating anything out of ordinary. Patient was found to have elevated lipase. CT abdomen was done which showed no acute finding. Patient states he is under lot of stress because his mom is dying from cancer and is on home hospice. Patient was admitted for further management. upper abdominal Pain Score (Numeric/FACES): 8 - Related Data Allergies/Adverse Reactions: Allergies Allergy/AdvReac Type Severity Reaction Status Date / Time No Known Allergies Allergy Verified 04/21/20 23:41 Home Medications: Home Meds Lisinopril/Hydrochlorothiazide [Lisinopril-Hctz 20-12.5 mg Tab] 1 tab PO DAILY 12/06/18 [History] Metoprolol Tartrate 25 mg PO DAILY 12/06/18 [History] Amoxicillin/Clavulanate K [Augmentin 875-125 MG] 1 tab PO BID 04/21/20 [History] Past Medical History HEENT History: Reports: Other (See Below) Other HEENT History: upper denture, hx fx jaw Cardiovascular History: Reports: CAD, Hypertension, PA Other Cardiovascular History: "mild PA" Respiratory History: Reports: None Gastrointestinal History: Reports: GERD Genitourinary History: Reports: None Musculoskeletal History: Reports: Arthritis, Back Pain, Chronic, Fracture Other Musculoskeletal History: hx of fx to both lower legs, hx fx arm and facial bones Neurological History: Reports: None Psychiatric History: Reports: None Endocrine/Metabolic History: Reports: Obesity/BMI 30+ Hematologic History: Reports: None Immunologic History: Reports: None Oncologic (Cancer) History: Reports: None Dermatologic History: Reports: None - Infectious Disease History Infectious Disease History: Reports: Chicken Pox, Mumps - Past Surgical History Head Surgeries/Procedures: Reports: None HEENT Surgical History: Reports: None Cardiovascular Surgical History: Reports: None Respiratory Surgical History: Reports: None GI Surgical History: Reports: Cholecystectomy, Other (See Below) Other GI Surgeries/Procedures: laproscopy heller myotomy Male Surgical History: Reports: None Endocrine Surgical History: Reports: None Neurological Surgical History: Reports: Lumbar Spine Other Neurological Surgeries/Procedures: back surgery x3 Musculoskeletal Surgical History: Reports: ORIF, Shoulder Surgery, Other (See Below) Other Musculoskeletal Surgeries/Procedures:: hardware to both lower extremities, hx rt shoulder surgery Oncologic Surgical History: Reports: None Dermatological Surgical History: Reports: None Social & Family History - Family History Family Medical History: No Pertinent Family History - Tobacco Use Tobacco Use Status *Q: Current Every Day Tobacco User Years of Tobacco use: 25 Packs/Tins Daily: 0.2 Used Tobacco, but Quit: No - Caffeine Use Caffeine Use: Reports: Soda Other Caffeine Use: 7 UP, Sprite - Recreational Drug Use Recreational Drug Use: Yes Drug Use in Last 12 Months: Yes Recreational Drug Type: Reports: Other (see below) Other Recreational Drug Type: Pt states he used marijuana for pain control. Methamphetamine use stopped 8 months ago. Recreational Drug Use Frequency: Weekly Recreational Drug Last Use: 5-6 days ago H&P Review of Systems - Review of Systems: Review Of Systems: See Below General: Denies: Fever, Chills Pulmonary: Denies: Shortness of Breath, Wheezing Cardiovascular: Denies: Chest Pain, Palpitations, Dyspnea on Exertion, Orthopnea Gastrointestinal: Reports: Abdominal Pain, Anorexia, Decreased Appetite, Nausea, Vomiting. Denies: Black Stool, Bloody Stool, Constipation, Diarrhea, Difficulty Swallowing, Distension, Hematemesis, Hematochezia, Stool Incontinence Genitourinary: Denies: Dysuria, Frequency, Burning Musculoskeletal: Denies: Neck Pain, Shoulder Pain, Arm Pain Skin: Denies: Cyanosis, Jaundice, Mottled Exam - Exam Exam: See Below - Vital Signs Vital Signs: Last Vital Signs Temp 35.9 C L 04/21/20 22:30 Pulse 75 04/21/20 22:30 Resp 18 04/21/20 22:30 BP 148/91 H 04/21/20 22:30 Pulse Ox 98 04/21/20 22:30 Weight: 102.2 kg - Exam General: Alert, Oriented, Mild Distress Neck: Supple, Trachea Midline Lungs: Clear to Auscultation, Normal Respiratory Effort Cardiovascular: Regular Rate, Regular Rhythm, Normal S1, Normal S2 GI/Abdominal Exam: Normal Bowel Sounds, Soft, Guarding, Tender. No: Non-Tender, Distended, Abnormal Bowel Sounds, Hepatomegaly, Splenomegaly - Patient Data Lab Results Last 24 hrs: Laboratory Results - last 24 hr 04/21/20 04/21/20 04/21/20 Range/Units 19:30 19:30 19:30 WBC 13.79 H (4.0-11.0) K/uL RBC 5.87 (4.50-5.90) M/uL Hgb 17.2 H (13.0-17.0) g/dL Hct 51.0 H (38.0-50.0) % MCV 86.9 (80.0-98.0) fL MCH 29.3 (27.0-32.0) pg MCHC 33.7 (31.0-37.0) g/dL RDW Std Deviation 42.9 (28.0-62.0) fl RDW Coeff of Elisa 13 (11.0-15.0) % Plt Count 219 (150-400) K/uL MPV 9.70 (7.40-12.00) fL Neut % (Auto) 83.7 H (48.0-80.0) % Lymph % (Auto) 7.0 L (16.0-40.0) % [place] % (Auto) 5.4 (0.0-15.0) % Eos % (Auto) 3.7 (0.0-7.0) % Baso % (Auto) 0.2 (0.0-1.5) % Neut # (Auto) 11.5 H (1.4-5.7) K/uL Lymph # (Auto) 1.0 (0.6-2.4) K/uL [place] # (Auto) 0.8 (0.0-0.8) K/uL Eos # (Auto) 0.5 (0.0-0.7) K/uL Baso # (Auto) 0.0 (0.0-0.1) K/uL Nucleated RBC % 0.0 /100WBC Nucleated RBCs # 0 K/uL Sodium 136 (136-148) mmol/L Potassium 4.4 (3.5-5.1) mmol/L Chloride 102 (98-107) mmol/L Carbon Dioxide 25.0 (21.0-32.0) mmol/L BUN 22 H (7.0-18.0) mg/dL Creatinine 1.2 (0.8-1.3) mg/dL Est Cr Clr Drug Dosing 75.44 mL/min Estimated GFR (MDRD) > 60.0 ml/min Glucose 117 H (74-106) mg/dL Calcium 9.3 (8.5-10.1) mg/dL Total Bilirubin 1.1 H (0.2-1.0) mg/dL AST 138 H (15-37) IU/L ALT 96 H (14-63) IU/L Alkaline Phosphatase 115 (46-116) U/L Total Protein 8.3 H (6.4-8.2) g/dL Albumin 4.4 (3.4-5.0) g/dL Globulin 3.9 (2.6-4.0) g/dL Albumin/Globulin Ratio 1.1 (0.9-1.6) Lipase 1164 H (73-393) U/L Urine Color Urine Appearance Urine pH (5.0-8.0) Ur Specific [place] (1.001-1.035) Urine Protein (NEGATIVE) mg/dL Urine Glucose (UA) (NEGATIVE) mg/dL Urine Ketones (NEGATIVE) mg/dL Urine Occult Blood (NEGATIVE) Urine Nitrite (NEGATIVE) Urine Bilirubin (NEGATIVE) Urine Urobilinogen (<2.0) EU/dL Ur Leukocyte Esterase (NEGATIVE) Urine Opiates Screen (NEGATIVE) Ur Oxycodone Screen (NEGATIVE) Urine Methadone Screen (NEGATIVE) Ur Barbiturates Screen (NEGATIVE) Ur Phencyclidine Scrn (NEGATIVE) Ur Amphetamine Screen (NEGATIVE) U Methamphetamines Scrn (NEGATIVE) U Benzodiazepines Scrn (NEGATIVE) U Cocaine Metab Screen (NEGATIVE) U Marijuana (THC) Screen (NEGATIVE) Ethyl Alcohol < 3.0 mg/dL SARS-CoV-2 RNA (DEX) (NEGATIVE) 04/21/20 04/21/20 04/21/20 Range/Units 20:20 20:55 20:55 WBC (4.0-11.0) K/uL RBC (4.50-5.90) M/uL Hgb (13.0-17.0) g/dL Hct (38.0-50.0) % MCV (80.0-98.0) fL MCH (27.0-32.0) pg MCHC (31.0-37.0) g/dL RDW Std Deviation (28.0-62.0) fl RDW Coeff of Elisa (11.0-15.0) % Plt Count (150-400) K/uL MPV (7.40-12.00) fL Neut % (Auto) (48.0-80.0) % Lymph % (Auto) (16.0-40.0) % [place] % (Auto) (0.0-15.0) % Eos % (Auto) (0.0-7.0) % Baso % (Auto) (0.0-1.5) % Neut # (Auto) (1.4-5.7) K/uL Lymph # (Auto) (0.6-2.4) K/uL [place] # (Auto) (0.0-0.8) K/uL Eos # (Auto) (0.0-0.7) K/uL Baso # (Auto) (0.0-0.1) K/uL Nucleated RBC % /100WBC Nucleated RBCs # K/uL Sodium (136-148) mmol/L Potassium (3.5-5.1) mmol/L Chloride (98-107) mmol/L Carbon Dioxide (21.0-32.0) mmol/L BUN (7.0-18.0) mg/dL Creatinine (0.8-1.3) mg/dL Est Cr Clr Drug Dosing mL/min Estimated GFR (MDRD) ml/min Glucose (74-106) mg/dL Calcium (8.5-10.1) mg/dL Total Bilirubin (0.2-1.0) mg/dL AST (15-37) IU/L ALT (14-63) IU/L Alkaline Phosphatase (46-116) U/L Total Protein (6.4-8.2) g/dL Albumin (3.4-5.0) g/dL Globulin (2.6-4.0) g/dL Albumin/Globulin Ratio (0.9-1.6) Lipase (73-393) U/L Urine Color YELLOW Urine Appearance CLEAR Urine pH 6.5 (5.0-8.0) Ur Specific [place] 1.020 (1.001-1.035) Urine Protein NEGATIVE (NEGATIVE) mg/dL Urine Glucose (UA) NEGATIVE (NEGATIVE) mg/dL Urine Ketones NEGATIVE (NEGATIVE) mg/dL Urine Occult Blood NEGATIVE (NEGATIVE) Urine Nitrite NEGATIVE (NEGATIVE) Urine Bilirubin NEGATIVE (NEGATIVE) Urine Urobilinogen 0.2 (<2.0) EU/dL Ur Leukocyte Esterase NEGATIVE (NEGATIVE) Urine Opiates Screen POSITIVE (NEGATIVE) Ur Oxycodone Screen NEGATIVE (NEGATIVE) Urine Methadone Screen POSITIVE (NEGATIVE) Ur Barbiturates Screen NEGATIVE (NEGATIVE) Ur Phencyclidine Scrn NEGATIVE (NEGATIVE) Ur Amphetamine Screen POSITIVE (NEGATIVE) U Methamphetamines Scrn POSITIVE (NEGATIVE) U Benzodiazepines Scrn NEGATIVE (NEGATIVE) U Cocaine Metab Screen NEGATIVE (NEGATIVE) U Marijuana (THC) Screen POSITIVE (NEGATIVE) Ethyl Alcohol mg/dL SARS-CoV-2 RNA (DEX) NEGATIVE (NEGATIVE) Result Diagrams: 04/21/20 19:30 04/21/20 19:30 Sepsis Event Note - Evaluation Sepsis Screening Result: No Definite Risk - Focused Exam Vital Signs: Vital Signs Temp Pulse Resp BP Pulse Ox 04/21/20 22:30 35.9 C L 75 18 148/91 H 98 04/21/20 21:37 36 C L 70 18 147/91 H 97 04/21/20 20:00 78 18 139/86 97 04/21/20 19:25 36.3 C 75 18 173/94 H 98 - Problem List (1) Pancreatitis SNOMED Code(s): 64727143 ICD Code: K85.90 - ACUTE PANCREATITIS WITHOUT NECROSIS OR INFECTION, UNSP Status: Acute Current Visit: Yes Qualifiers: Chronicity: acute Pancreatitis type: unspecified pancreatitis type Acute pancreatitis complication: no infection or necrosis Qualified Code(s): K85.90 - Acute pancreatitis without necrosis or infection, unspecified (2) Polysubstance abuse SNOMED Code(s): 241616746 ICD Code: F19.10 - OTHER PSYCHOACTIVE SUBSTANCE ABUSE, UNCOMPLICATED Status: Acute Current Visit: Yes (3) HTN (hypertension) SNOMED Code(s): 70406824 ICD Code: I10 - ESSENTIAL (PRIMARY) HYPERTENSION Status: Acute Current Visit: No (4) Hx of myocardial infarction SNOMED Code(s): 048078330 ICD Code: I25.2 - OLD MYOCARDIAL INFARCTION Status: Chronic Current Visit: No Problem List Initiated/Reviewed/Updated: Yes Orders Last 24hrs: Active Orders 24 hr Category Date Time Status Admission Status [Patient Status] [ADT] Stat ADT 04/21/20 21:31 Active Ambulate [RC] ASDIRECTED Care 04/21/20 23:28 Active Antiembolic Devices [RC] PER UNIT ROUTINE Care 04/21/20 23:29 Active Oxygen Therapy [RC] PRN Care 04/21/20 23:28 Active Pulse Oximetry [RC] PRN Care 04/21/20 23:28 Active RT Aerosol Therapy [RC] ASDIRECTED Care 04/21/20 23:30 Active VTE/DVT Education [RC] PER UNIT ROUTINE Care 04/21/20 23:28 Active Vital Signs [RC] Q4H Care 04/21/20 23:28 Active Nothing per Oral Now Diet [DIET] Diet 04/21/20 Dinner Active Albuterol/Ipratropium [DuoNeb 3.0-0.5 MG/3 ML] Med 04/21/20 23:28 Active 3 ml NEB Q4HRRT PRN Enoxaparin [Lovenox] Med 04/21/20 23:30 Active 40 mg SUBCUT Q24H Lactated Ringers [Ringers, Lactated] 1,000 ml Med 04/21/20 23:30 Active IV ASDIRECTED Morphine Med 04/21/20 23:28 Active 2 mg IVPUSH Q4H PRN Ondansetron [Zofran] Med 04/21/20 23:28 Active 4 mg IVPUSH Q4H PRN Pantoprazole [ProTONIX IV] Med 04/21/20 23:30 Active 40 mg IV DAILY Sodium Chloride 0.9% [Normal Saline] 1,000 ml Med 04/21/20 21:25 Active IV STAT Sequential Compression Device [OM.PC] Per Unit Routine Oth 04/21/20 23:29 Ordered Resuscitation Status Routine Resus Stat 04/21/20 23:28 Ordered Medication Orders Albuterol/Ipratropium (Duoneb 3.0-0.5 Mg/3 Ml) 3 ml NEB Q4HRRT PRN PRN Reason: Shortness Of Breath/wheezing Enoxaparin Sodium (Lovenox) 40 mg SUBCUT Q24H [facility] Last Admin: 04/22/20 00:06 Dose: 40 mg Documented by: LILY Sodium Chloride (Normal Saline) 1,000 mls @ 150 mls/hr IV STAT ONE Stop: 04/22/20 04:04 Last Admin: 04/21/20 21:35 Dose: 150 mls/hr Documented by: BEBETO Lactated Ringer's (Ringers, Lactated) 1,000 mls @ 150 mls/hr IV ASDIRECTED [facility] Morphine Sulfate (Morphine) 2 mg IVPUSH Q4H PRN PRN Reason: Pain (severe 7-10) Stop: 04/22/20 23:29 Last Admin: 04/21/20 23:58 Dose: 2 mg Documented by: LILY Ondansetron HCl (Zofran) 4 mg IVPUSH Q4H PRN PRN Reason: Nausea/Vomiting Last Admin: 04/21/20 23:56 Dose: 4 mg Documented by: LILY Pantoprazole Sodium (Protonix Iv) 40 mg IV DAILY [facility] Last Admin: 04/22/20 00:02 Dose: 40 mg Documented by: LILY Assessment/Plan Comment:: 54 y/o M admitted for pancreatitis, has h/o Pancreatitis in past start aggressive hydration with IV fluids NPO IV PPI, IV Zofran IV morphine for pain, no NSAIDs due to h/o surgery Resume home meds as able Keen to go home masha to be with his mother Monitor and replete electrolytes Lovenox for DVT ppx
[2020-04-22] MEDS: Ondansetron 4 MG/2 ML SDV IVPUSH PRN (04:26)
[2020-04-22 06:35] LABS: BLOOD UREA NITROGEN,BUN 20 mg/dL (7.0-18.0); CARBON DIOXIDE,CO2 27.5 mmol/L (21.0-32.0); CHLORIDE,CL 105 mmol/L (98-107); GLUCOSE RANDOM 80 mg/dL (74-106); LIPASE 132 U/L (73-393); POTASSIUM,K 4.1 mmol/L (3.5-5.1); SODIUM,NA 136 mmol/L (136-148)
[2020-04-22 08:59] VITALS: BP 132/68; PULSE 90
[2020-04-22] MEDS ORDERED: Metoprolol Tartrate 50 MG Tab PO SCH (09:00)
[2020-04-22] MEDS ORDERED: Amoxicillin/Clavulanate K 875-125 MG Tab PO SCH (09:00)
--- NOTE | 2020-04-22 10:44 | PCM.DCSUM1 ---
Discharge Summary - Hospital Course Brief History: 53 yo male with pmh of achalasia surgery [place] in 2019, pancreatitis. He presents to the ED with complaint of abdominal pain for past 2 weeks getting worse since this AM. He reports band of pain across his abdomen. He denies any blood in his stool, nausea or vomiting. Pain is associated with N/V. No diarrhea Patient states that he had a proedure few months back "to remove the scar tissue from his abdomen", patient doesnt recall eating anything out of ordinary. Patient was found to have elevated lipase. CT abdomen was done which showed no acute finding. Patient states he is under lot of stress because his mom is dying from cancer and is on home hospice. Patient was admitted for further management. Diagnosis: Stroke: No - Discharge Data Discharge Date: 04/22/20 Discharge Disposition: Home, Self-Care 01 Condition: Stable - Referral to Home Health Primary Care Physician: PCP None - Discharge Diagnosis/Problem(s) (1) Pancreatitis SNOMED Code(s): 74314231 ICD Code: K85.90 - ACUTE PANCREATITIS WITHOUT NECROSIS OR INFECTION, UNSP Status: Acute Qualifiers: Chronicity: acute Pancreatitis type: unspecified pancreatitis type Acute pancreatitis complication: no infection or necrosis Qualified Code(s): K85.90 - Acute pancreatitis without necrosis or infection, unspecified (2) Polysubstance abuse SNOMED Code(s): 407441641 ICD Code: F19.10 - OTHER PSYCHOACTIVE SUBSTANCE ABUSE, UNCOMPLICATED Status: Acute (3) Abdominal pain SNOMED Code(s): 07542949 ICD Code: R10.9 - UNSPECIFIED ABDOMINAL PAIN Status: Acute Qualifiers: Abdominal location: unspecified location Qualified Code(s): R10.9 - Unspecified abdominal pain (4) HTN (hypertension) SNOMED Code(s): 20945726 ICD Code: I10 - ESSENTIAL (PRIMARY) HYPERTENSION Status: Acute (5) CAD (coronary artery disease) SNOMED Code(s): 38443097 ICD Code: I25.10 - ATHSCL HEART DISEASE OF [place] CORONARY ARTERY W/O ANG PCTRS Status: Chronic (6) Hx of myocardial infarction SNOMED Code(s): 947583580 ICD Code: I25.2 - OLD MYOCARDIAL INFARCTION Status: Chronic (7) Tobacco use SNOMED Code(s): 486507404 ICD Code: Z72.0 - TOBACCO USE Status: Chronic - Patient Summary/Data Hospital Course: Admission diagnoses Acute pancreatitis Discharge diagnosis Acute pancreatitis Hammad was admitted secondary to acute pancreatitis with abdominal pain. He was given IV fluids along with pain medications and kept n.p.o. This morning he is feeling much improved has not used any pain medicine since yesterday evening. He is requesting clear liquid diet and then discharge as his mother is at home on hospice and was not given much time left. He was counseled on staying clear liquid to full liquid for the next few days then slowly advancing to low-fat diet. He was advised to stay away from alcohol as well. He verbalized understanding. He did tolerate clear liquid today and will be discharged home. He was given omeprazole for 30 days. He is to return to the ER or clinic if concerns should arise he does have a PCP follow-up in 1 to 2 weeks with PCP in [place]. - Patient Instructions Diet: Full Liquid Diet (for next couple days then slowly advance to low fat diet) Activity: As Tolerated Driving: Do Not Drive Showering/Bathing: May Shower Notify Provider of: Fever, Increased Pain, Swelling and Redness, Drainage, Nausea and/or Vomiting - Discharge Plan *PRESCRIPTION DRUG MONITORING PROGRAM REVIEWED*: Not Applicable *COPY OF PRESCRIPTION DRUG MONITORING REPORT IN PATIENT ADILIA: Not Applicable Prescriptions/Med Rec: Omeprazole 20 mg PO ACBREAKFAST #30 cap.sr Home Medications: Home Meds Lisinopril/Hydrochlorothiazide [Lisinopril-Hctz 20-12.5 mg Tab] 1 tab PO DAILY 12/06/18 [History] Metoprolol Tartrate 25 mg PO DAILY 12/06/18 [History] Amoxicillin/Clavulanate K [Augmentin 875-125 MG] 1 tab PO BID 04/21/20 [History] Omeprazole 20 mg PO ACBREAKFAST #30 cap.sr 04/22/20 [Rx] Oxygen Therapy Mode: Room Air Patient Handouts: Acute Pancreatitis, [id number], Omeprazole tablets (OTC) Referrals: Noah Monreal MD [Ordering Only Provider] - 04/29/20 1:00 pm - Discharge Summary/Plan Comment DC Time >30 min.: No - Patient Data Vitals - Most Recent: Last Vital Signs Temp 97.4 F 04/22/20 08:00 Pulse 90 04/22/20 08:50 Resp 16 04/22/20 08:00 BP 132/68 04/22/20 08:50 Pulse Ox 98 04/22/20 08:00 Weight - Most Recent: 102.2 kg I&O - Last 24 hours: Intake & Output 04/21/20 04/22/20 04/22/20 22:59 06:59 14:59 Intake Total 782 Output Total 600 Balance 182 Lab Results - Last 24 hrs: Laboratory Results - last 24 hr 04/21/20 04/21/20 04/21/20 Range/Units 19:30 19:30 19:30 WBC 13.79 H (4.0-11.0) K/uL RBC 5.87 (4.50-5.90) M/uL Hgb 17.2 H (13.0-17.0) g/dL Hct 51.0 H (38.0-50.0) % MCV 86.9 (80.0-98.0) fL MCH 29.3 (27.0-32.0) pg MCHC 33.7 (31.0-37.0) g/dL RDW Std Deviation 42.9 (28.0-62.0) fl RDW Coeff of Elisa 13 (11.0-15.0) % Plt Count 219 (150-400) K/uL MPV 9.70 (7.40-12.00) fL Neut % (Auto) 83.7 H (48.0-80.0) % Lymph % (Auto) 7.0 L (16.0-40.0) % Reeves % (Auto) 5.4 (0.0-15.0) % Eos % (Auto) 3.7 (0.0-7.0) % Baso % (Auto) 0.2 (0.0-1.5) % Neut # (Auto) 11.5 H (1.4-5.7) K/uL Lymph # (Auto) 1.0 (0.6-2.4) K/uL Reeves # (Auto) 0.8 (0.0-0.8) K/uL Eos # (Auto) 0.5 (0.0-0.7) K/uL Baso # (Auto) 0.0 (0.0-0.1) K/uL Add Manual Diff Neutrophils % (Manual) (48.0-80.0) % Lymphocytes % (Manual) (16.0-40.0) % Monocytes % (Manual) (0.0-15.0) % Eosinophils % (Manual) (0.0-7.0) % Nucleated RBC % 0.0 /100WBC Absolute Seg Neuts (1.4-5.7) Lymphocytes # (Manual) (0.6-2.4) Monocytes # (Manual) (0.0-0.8) Eosinophils # (Manual) (0.0-0.7) Nucleated RBCs # 0 K/uL Sodium 136 (136-148) mmol/L Potassium 4.4 (3.5-5.1) mmol/L Chloride 102 (98-107) mmol/L Carbon Dioxide 25.0 (21.0-32.0) mmol/L BUN 22 H (7.0-18.0) mg/dL Creatinine 1.2 (0.8-1.3) mg/dL Est Cr Clr Drug Dosing 75.44 mL/min Estimated GFR (MDRD) > 60.0 ml/min Glucose 117 H (74-106) mg/dL Calcium 9.3 (8.5-10.1) mg/dL Phosphorus (2.6-4.7) mg/dL Magnesium (1.8-2.4) mg/dL Total Bilirubin 1.1 H (0.2-1.0) mg/dL AST 138 H (15-37) IU/L ALT 96 H (14-63) IU/L Alkaline Phosphatase 115 (46-116) U/L Total Protein 8.3 H (6.4-8.2) g/dL Albumin 4.4 (3.4-5.0) g/dL Globulin 3.9 (2.6-4.0) g/dL Albumin/Globulin Ratio 1.1 (0.9-1.6) Lipase 1164 H (73-393) U/L Urine Color Urine Appearance Urine pH (5.0-8.0) Ur Specific [place] (1.001-1.035) Urine Protein (NEGATIVE) mg/dL Urine Glucose (UA) (NEGATIVE) mg/dL Urine Ketones (NEGATIVE) mg/dL Urine Occult Blood (NEGATIVE) Urine Nitrite (NEGATIVE) Urine Bilirubin (NEGATIVE) Urine Urobilinogen (<2.0) EU/dL Ur Leukocyte Esterase (NEGATIVE) Urine Opiates Screen (NEGATIVE) Ur Oxycodone Screen (NEGATIVE) Urine Methadone Screen (NEGATIVE) Ur Barbiturates Screen (NEGATIVE) Ur Phencyclidine Scrn (NEGATIVE) Ur Amphetamine Screen (NEGATIVE) U Methamphetamines Scrn (NEGATIVE) U Benzodiazepines Scrn (NEGATIVE) U Cocaine Metab Screen (NEGATIVE) U Marijuana (THC) Screen (NEGATIVE) Ethyl Alcohol < 3.0 mg/dL SARS-CoV-2 RNA (DEX) (NEGATIVE) 04/21/20 04/21/20 04/21/20 Range/Units 20:20 20:55 20:55 WBC (4.0-11.0) K/uL RBC (4.50-5.90) M/uL Hgb (13.0-17.0) g/dL Hct (38.0-50.0) % MCV (80.0-98.0) fL MCH (27.0-32.0) pg MCHC (31.0-37.0) g/dL RDW Std Deviation (28.0-62.0) fl RDW Coeff of Elisa (11.0-15.0) % Plt Count (150-400) K/uL MPV (7.40-12.00) fL Neut % (Auto) (48.0-80.0) % Lymph % (Auto) (16.0-40.0) % Reeves % (Auto) (0.0-15.0) % Eos % (Auto) (0.0-7.0) % Baso % (Auto) (0.0-1.5) % Neut # (Auto) (1.4-5.7) K/uL Lymph # (Auto) (0.6-2.4) K/uL Reeves # (Auto) (0.0-0.8) K/uL Eos # (Auto) (0.0-0.7) K/uL Baso # (Auto) (0.0-0.1) K/uL Add Manual Diff Neutrophils % (Manual) (48.0-80.0) % Lymphocytes % (Manual) (16.0-40.0) % Monocytes % (Manual) (0.0-15.0) % Eosinophils % (Manual) (0.0-7.0) % Nucleated RBC % /100WBC Absolute Seg Neuts (1.4-5.7) Lymphocytes # (Manual) (0.6-2.4) Monocytes # (Manual) (0.0-0.8) Eosinophils # (Manual) (0.0-0.7) Nucleated RBCs # K/uL Sodium (136-148) mmol/L Potassium (3.5-5.1) mmol/L Chloride (98-107) mmol/L Carbon Dioxide (21.0-32.0) mmol/L BUN (7.0-18.0) mg/dL Creatinine (0.8-1.3) mg/dL Est Cr Clr Drug Dosing mL/min Estimated GFR (MDRD) ml/min Glucose (74-106) mg/dL Calcium (8.5-10.1) mg/dL Phosphorus (2.6-4.7) mg/dL Magnesium (1.8-2.4) mg/dL Total Bilirubin (0.2-1.0) mg/dL AST (15-37) IU/L ALT (14-63) IU/L Alkaline Phosphatase (46-116) U/L Total Protein (6.4-8.2) g/dL Albumin (3.4-5.0) g/dL Globulin (2.6-4.0) g/dL Albumin/Globulin Ratio (0.9-1.6) Lipase (73-393) U/L Urine Color YELLOW Urine Appearance CLEAR Urine pH 6.5 (5.0-8.0) Ur Specific [place] 1.020 (1.001-1.035) Urine Protein NEGATIVE (NEGATIVE) mg/dL Urine Glucose (UA) NEGATIVE (NEGATIVE) mg/dL Urine Ketones NEGATIVE (NEGATIVE) mg/dL Urine Occult Blood NEGATIVE (NEGATIVE) Urine Nitrite NEGATIVE (NEGATIVE) Urine Bilirubin NEGATIVE (NEGATIVE) Urine Urobilinogen 0.2 (<2.0) EU/dL Ur Leukocyte Esterase NEGATIVE (NEGATIVE) Urine Opiates Screen POSITIVE (NEGATIVE) Ur Oxycodone Screen NEGATIVE (NEGATIVE) Urine Methadone Screen POSITIVE (NEGATIVE) Ur Barbiturates Screen NEGATIVE (NEGATIVE) Ur Phencyclidine Scrn NEGATIVE (NEGATIVE) Ur Amphetamine Screen POSITIVE (NEGATIVE) U Methamphetamines Scrn POSITIVE (NEGATIVE) U Benzodiazepines Scrn NEGATIVE (NEGATIVE) U Cocaine Metab Screen NEGATIVE (NEGATIVE) U Marijuana (THC) Screen POSITIVE (NEGATIVE) Ethyl Alcohol mg/dL SARS-CoV-2 RNA (DEX) NEGATIVE (NEGATIVE) 04/22/20 04/22/20 Range/Units 05:45 05:45 WBC 9.19 (4.0-11.0) K/uL RBC 5.05 (4.50-5.90) M/uL Hgb 14.4 (13.0-17.0) g/dL Hct 44.0 (38.0-50.0) % MCV 87.1 (80.0-98.0) fL MCH 28.5 (27.0-32.0) pg MCHC 32.7 (31.0-37.0) g/dL RDW Std Deviation 43.4 (28.0-62.0) fl RDW Coeff of Elisa 14 (11.0-15.0) % Plt Count 210 (150-400) K/uL MPV 9.90 (7.40-12.00) fL Neut % (Auto) (48.0-80.0) % Lymph % (Auto) (16.0-40.0) % Reeves % (Auto) (0.0-15.0) % Eos % (Auto) (0.0-7.0) % Baso % (Auto) (0.0-1.5) % Neut # (Auto) (1.4-5.7) K/uL Lymph # (Auto) (0.6-2.4) K/uL Reeves # (Auto) (0.0-0.8) K/uL Eos # (Auto) (0.0-0.7) K/uL Baso # (Auto) (0.0-0.1) K/uL Add Manual Diff YES Neutrophils % (Manual) 41 L (48.0-80.0) % Lymphocytes % (Manual) 30 (16.0-40.0) % Monocytes % (Manual) 4 (0.0-15.0) % Eosinophils % (Manual) 25 H (0.0-7.0) % Nucleated RBC % 0.0 /100WBC Absolute Seg Neuts 3.8 (1.4-5.7) Lymphocytes # (Manual) 2.8 H (0.6-2.4) Monocytes # (Manual) 0.4 (0.0-0.8) Eosinophils # (Manual) 2.3 H (0.0-0.7) Nucleated RBCs # 0 K/uL Sodium 136 (136-148) mmol/L Potassium 4.1 (3.5-5.1) mmol/L Chloride 105 (98-107) mmol/L Carbon Dioxide 27.5 (21.0-32.0) mmol/L BUN 20 H (7.0-18.0) mg/dL Creatinine 1.0 (0.8-1.3) mg/dL Est Cr Clr Drug Dosing 90.53 mL/min Estimated GFR (MDRD) > 60.0 ml/min Glucose 80 (74-106) mg/dL Calcium 8.1 L (8.5-10.1) mg/dL Phosphorus 2.7 (2.6-4.7) mg/dL Magnesium 1.8 (1.8-2.4) mg/dL Total Bilirubin 0.8 (0.2-1.0) mg/dL AST 54 H (15-37) IU/L ALT 68 H (14-63) IU/L Alkaline Phosphatase 93 (46-116) U/L Total Protein 6.4 (6.4-8.2) g/dL Albumin 3.3 L (3.4-5.0) g/dL Globulin 3.1 (2.6-4.0) g/dL Albumin/Globulin Ratio 1.1 (0.9-1.6) Lipase 132 (73-393) U/L Urine Color Urine Appearance Urine pH (5.0-8.0) Ur Specific [place] (1.001-1.035) Urine Protein (NEGATIVE) mg/dL Urine Glucose (UA) (NEGATIVE) mg/dL Urine Ketones (NEGATIVE) mg/dL Urine Occult Blood (NEGATIVE) Urine Nitrite (NEGATIVE) Urine Bilirubin (NEGATIVE) Urine Urobilinogen (<2.0) EU/dL Ur Leukocyte Esterase (NEGATIVE) Urine Opiates Screen (NEGATIVE) Ur Oxycodone Screen (NEGATIVE) Urine Methadone Screen (NEGATIVE) Ur Barbiturates Screen (NEGATIVE) Ur Phencyclidine Scrn (NEGATIVE) Ur Amphetamine Screen (NEGATIVE) U Methamphetamines Scrn (NEGATIVE) U Benzodiazepines Scrn (NEGATIVE) U Cocaine Metab Screen (NEGATIVE) U Marijuana (THC) Screen (NEGATIVE) Ethyl Alcohol mg/dL SARS-CoV-2 RNA (DEX) (NEGATIVE) Med Orders - Current: Current Medications Albuterol/Ipratropium (Duoneb 3.0-0.5 Mg/3 Ml) 3 ml NEB Q4HRRT PRN PRN Reason: Shortness Of Breath/wheezing Amoxicillin/Clavulanate Potassium (Augmentin 875 Mg/125 Mg) 1 tab PO BID [facility] Last Admin: 04/22/20 08:50 Dose: 1 tab Documented by: Enoxaparin Sodium (Lovenox) 40 mg SUBCUT Q24H [facility] Last Admin: 04/22/20 00:06 Dose: 40 mg Documented by: Lactated Ringer's (Ringers, Lactated) 1,000 mls @ 150 mls/hr IV ASDIRECTED [facility] Last Admin: 04/22/20 04:23 Dose: 150 mls/hr Documented by: Metoprolol Tartrate (Lopressor) 25 mg PO DAILY [facility] Last Admin: 04/22/20 08:50 Dose: 25 mg Documented by: Morphine Sulfate (Morphine) 2 mg IVPUSH Q4H PRN PRN Reason: Pain (severe 7-10) Stop: 04/22/20 23:29 Last Admin: 04/21/20 23:58 Dose: 2 mg Documented by: Ondansetron HCl (Zofran) 4 mg IVPUSH Q4H PRN PRN Reason: Nausea/Vomiting Last Admin: 04/22/20 04:26 Dose: 4 mg Documented by: Pantoprazole Sodium (Protonix Iv) 40 mg IV DAILY [facility] Last Admin: 04/22/20 08:50 Dose: 40 mg Documented by: Discontinued Medications Famotidine (Pepcid) 20 mg IVPUSH ONETIME ONE Stop: 04/21/20 20:00 Last Admin: 04/21/20 20:23 Dose: 20 mg Documented by: Sodium Chloride (Normal Saline) 1,000 mls @ 999 mls/hr IV ASDIRECTED [facility] Last Admin: 04/21/20 19:40 Dose: 999 mls/hr Documented by: Sodium Chloride (Normal Saline) 1,000 mls @ 150 mls/hr IV STAT ONE Stop: 04/22/20 04:04 Last Admin: 04/21/20 21:35 Dose: 150 mls/hr Documented by: Iopamidol (Isovue Multipack-370 (76%)) 100 ml IVPUSH ONETIME STA Stop: 04/21/20 21:42 Last Admin: 04/21/20 21:42 Dose: 100 ml Documented by: Ketorolac Tromethamine (Toradol) 30 mg IVPUSH ONETIME ONE Stop: 04/21/20 20:00 Last Admin: 04/21/20 20:24 Dose: Not Given Documented by: Morphine Sulfate (Morphine) 4 mg IVPUSH ONETIME ONE Stop: 04/21/20 20:14 Last Admin: 04/21/20 20:23 Dose: 4 mg Documented by: Ondansetron HCl (Zofran) 4 mg IVPUSH ONETIME ONE Stop: 04/21/20 19:28 Last Admin: 04/21/20 19:40 Dose: 4 mg Documented by: - Exam General: Reports: Alert, Oriented, Cooperative, No Acute Distress Lungs: Reports: Clear to Auscultation, Normal Respiratory Effort Cardiovascular: Reports: Regular Rate, Regular Rhythm GI/Abdominal Exam: Normal Bowel Sounds, Soft, Non-Tender, No Distention, No Mass Skin: Reports: Warm, Dry, Intact Neurological: Reports: No New Focal Deficit Psy/Mental Status: Reports: Alert, Normal Affect, Normal Mood
== END 2020-04-22 11:09 | disposition home or self-care (01) ==
LOC: MW.ED 19:19 → MW.MS 21:39
PROVIDERS: ADMIT Student in an Organized Health Care Education/Training Program; ATTEND Student in an Organized Health Care Education/Training Program
DX: K85.90 Acute pancreatitis without necrosis or infection, unspecified (principal); I25.10 Atherosclerotic heart disease of native coronary artery without angina pectoris; I25.2 Old myocardial infarction; E66.9 Obesity, unspecified; F17.210 Nicotine dependence, cigarettes, uncomplicated; F19.10 Other psychoactive substance abuse, uncomplicated; Z20.828 Contact with and (suspected) exposure to other viral communicable diseases; Z79.899 Other long term (current) drug therapy; Z90.49 Acquired absence of other specified parts of digestive tract; Z98.890 Other specified postprocedural states; Z68.31 Body mass index [BMI] 31.0-31.9, adult
CPT/HCPCS: 36415; 74177; 80053; 80305; 80307; 81003; 83690; 83735; 84100; 85025; A9270; C9113; J1650; J2270; J2405; J3490; J7030; J7120; Q9967; U0002; 96372; 96374; 96375; 96376; 99284; 99285-25; G0378

== ENCOUNTER 2025-03-26 21:19 | Emergency (ER) | payer MEDICAID, MEDICARE ==
[2025-03-26] MEDS: Amoxicillin/Clavulanate K 875-125 MG Tab PO ONE (22:19)
[2025-03-26 23:15] VITALS: BP 140/77; PULSE 78
== END 2025-03-26 23:11 | disposition home or self-care (01) ==
LOC: MW.ED 21:19
DX: S66.310A Strain of extensor muscle, fascia and tendon of right index finger at wrist and hand level, initial encounter (principal); S60.121A Contusion of right index finger with damage to nail, initial encounter; L03.011 Cellulitis of right finger; Z85.46 Personal history of malignant neoplasm of prostate; Z92.21 Personal history of antineoplastic chemotherapy; I10 Essential (primary) hypertension; K21.9 Gastro-esophageal reflux disease without esophagitis; E66.9 Obesity, unspecified; Z79.899 Other long term (current) drug therapy; Z90.49 Acquired absence of other specified parts of digestive tract; W50.3XXA Accidental bite by another person, initial encounter
CPT/HCPCS: 11740; 73140; 99283; A9270; J2003; 10060; 99284